=== PATIENT | female | born 1965 | race Caucasian/White ===

== ENCOUNTER → 2019-02-06 | Outpatient (CLI) | payer SELFPAY | PROVIDERS: Family Provider Registered Nurse; Visit Provider Licensed Practical Nurse | DX: M50.020 Cervical disc disorder with myelopathy, mid-cervical region, unspecified level (principal) | CPT/HCPCS: 72125 ==

== ENCOUNTER → 2019-02-26 14:18 | Outpatient (BNVA) | payer SELFPAY | PROVIDERS: Family Provider Registered Nurse; Referring Provider Licensed Practical Nurse; Visit Provider Psychiatry & Neurology Neurology | DX: M54.12 Radiculopathy, cervical region (principal); M79.601 Pain in right arm; M79.602 Pain in left arm | CPT/HCPCS: 95886; 95910 ==

== ENCOUNTER → 2019-09-19 14:21 | Outpatient (BNVA) | payer OTHER, SELFPAY | PROVIDERS: Family Provider Registered Nurse; PCP Registered Nurse; Visit Provider Nurse Practitioner Family | DX: Z11.59 Encounter for screening for other viral diseases (principal); J06.9 Acute upper respiratory infection, unspecified; R50.9 Fever, unspecified | CPT/HCPCS: 87635 ==

== ENCOUNTER → 2019-10-04 11:58 | Outpatient (BNVA) | payer MEDICAID, SELFPAY | PROVIDERS: Family Provider Registered Nurse; PCP Registered Nurse; Visit Provider Licensed Practical Nurse | DX: M50.020 Cervical disc disorder with myelopathy, mid-cervical region, unspecified level (principal); M43.12 Spondylolisthesis, cervical region | CPT/HCPCS: 99214 ==

== ENCOUNTER 2019-10-23 09:25 | Outpatient (CLI) | payer MEDICAID, SELFPAY ==
--- NOTE | 2019-10-23 08:45 | MR_ITS ---
WS: [id number] MRI CERVICAL SPINE NONCONTRAST TECHNIQUE: Sagittal T1, T2 and STIR imaging. Axial T2, gradient, and fiesta imaging. CLINICAL INFORMATION: M50.020 Cervical disc disorder with myelopathy, mid-cervi... COMPARISON: MRI FINDINGS: Straightening of the normal cervical lordosis. No high-grade central canal narrowing. Cord signal is normal. Alignment is unchanged. C2-C3: Normal. C3-C4: No significant disc bulging. Mild facet arthropathy. Mild left and no significant right forami nal narrowing. Edema in the right C3-C4 facets with a right facet effusion consistent with synovitis. Small amount of periarticular edema. This is similar to previous. C4-C5: Slight anterolisthesis. Disc osteophyte complex with endplate ridging. Moderate facet arthropa thy with mild bilateral foraminal narrowing. Persistent right C4-5 facet effusion with periarticular edema consistent with synovitis. C5-C6: Mild disc bulging. Mild to moderate facet arthropathy worse on the right. Moderate right and m ild left foraminal narrowing. C6-C7: Mild disc bulging with osteophytic ridging. Moderate to severe left and mild right bony forami nal narrowing. Mild central canal stenosis. C7-T1: Mild disc bulging with osteophytic ridging. Mild left and no significant right foraminal narro wing. Spinal canal is patent. Small disc protrusions in the upper thoracic spine. Overall no significant changes since . MR/MR cervical spin wo con* [id number] IMPRESSION: 1. Straightening of the normal cervical lordosis. Slight anterolisthesis C4 on C5 unchanged. 2. No high-grade central canal stenosis. Cord signal is normal. 3. Mild central canal stenosis C5-C6 and C6-C7. 4. Multilevel bony foraminal narrowing unchanged worse at right C4-C5 and left C6-C7. Moderate to severe at left C6-7. 5. Persistent edema within the right C3-C4 and C4-5 facets consistent with syn ovitis.
--- NOTE | 2019-10-23 09:30 | XR_ITS ---
WS: [id number] CERVICAL SPINE FLEXION EXTENSION TECHNIQUE: 3 views of the cervical spine: lateral neutral, flexion and extension views. CLINICAL INFORMATION: Neck pain COMPARISON: None. FINDINGS: Straightening of the normal cervical lordosis. 1.9 mm anterolisthesis C3 on C4 which increases slightly in flexion and decreases on extension 2 mm anterolisthesis C4 on C5 unchanged in flexion and decreases in extension 1.3 mm anterolisthesis C5 on C6 slightly increases in flexion and decreases on extension. Posterior elements are normal. No other significant findings. XR/XR cervical spine fl/ex [id number] IMPRESSION: 1. Mild flexion-extension instability at C3-C4 C4-C5 and C5-C6 described above .
== END 2019-10-23 09:26 | disposition home or self-care (01) ==
LOC: RADWPI 09:28
PROVIDERS: PCP Registered Nurse; Visit Provider Licensed Practical Nurse
DX: M50.020 Cervical disc disorder with myelopathy, mid-cervical region, unspecified level (principal); M43.12 Spondylolisthesis, cervical region; M54.2 Cervicalgia; G89.29 Other chronic pain; F17.210 Nicotine dependence, cigarettes, uncomplicated
CPT/HCPCS: 72040; 72141; 99214

== ENCOUNTER 2019-11-01 11:26 | Outpatient (RCR) | payer MEDICAID, SELFPAY | END 2019-11-07 23:59 | disposition home or self-care (01) | LOC: SPT 11:26 | PROVIDERS: PCP Registered Nurse; Referring Provider Licensed Practical Nurse; Visit Provider Licensed Practical Nurse | DX: M50.020 Cervical disc disorder with myelopathy, mid-cervical region, unspecified level (principal); M43.12 Spondylolisthesis, cervical region | CPT/HCPCS: 97110; 97161 ==

== ENCOUNTER 2019-11-08 06:00 | Outpatient (RCR) | payer MEDICAID, SELFPAY | END 2019-12-08 23:59 | disposition home or self-care (01) | LOC: SPT 06:00 | PROVIDERS: PCP Registered Nurse; Referring Provider Licensed Practical Nurse; Visit Provider Licensed Practical Nurse | DX: M50.020 Cervical disc disorder with myelopathy, mid-cervical region, unspecified level (principal); M43.12 Spondylolisthesis, cervical region | CPT/HCPCS: 97110 ==

== ENCOUNTER 2019-11-09 10:13 | Outpatient (CLI) | payer MEDICAID, SELFPAY ==
--- NOTE | 2019-11-09 10:45 | CT_ITS ---
WS: [id number] CT cervical spine. Additional two-dimensional coronal and sagittal reconstruction was performed. 11/08 Clinical Data: Neck pain Comparison: Cervical spine, 10/23/2019, MRI cervical spine, 10/23/2019, CT cervical spine, 02/06/2019. DLP: 1634.[address] scans at [facility] use at least one of these dose optimization techniques: automat ed exposure control; mA and/or kV adjustment per patient size (includes targeted exams where dose is matched to clinical indication); or iterative reconstruction. Findings: No compression fractures are seen. There is degenerative disc disease at C5-C6, C6-C7 and C7-T1. Ther e is anterolisthesis of C3 on C4 of 0.2 cm and also 0.2 cm at C4 on C5. Facet joint arthritis at C3-C 4, C4-C5 and C5-C6 on the right is seen. The spinous processes are in good alignment. The odontoid is unremarkable. There is no prevertebral soft tissue swelling. The soft tissues of the cervical spine and the lung apices are not remarkable. C2-C3: No disc bulge, canal stenosis or foraminal stenosis is seen. C3-C4: There is a 0.8 cm cyst of the right C3 facet. No canal stenosis or foraminal stenosis is seen. C4-C5: There is narrowing of the right foramen. No central canal stenosis is seen. The left foramen i s normal. C5-C6: There is mild narrowing of the right foramen but no canal stenosis. C6-C7: There is mild narrowing of the left foramen but no canal stenosis. C7-T1: No disc bulge, canal stenosis or foraminal stenosis is seen. CT/CT cervical spin wo con* [id number] Impression: 1. Minimal anterolisthesis of C3 on C4 and C4 on C5. 2. Minimal multilevel anterolateral foraminal narrowing. 3. Right facet joint arthritis with a cyst of the right C3 facet.
== END 2019-11-09 10:14 | disposition home or self-care (01) ==
LOC: RADWPI 10:17
PROVIDERS: Family Provider Registered Nurse; PCP Registered Nurse; Visit Provider Licensed Practical Nurse
DX: M47.812 Spondylosis without myelopathy or radiculopathy, cervical region (principal)
CPT/HCPCS: 72125

== ENCOUNTER → 2019-11-13 12:59 | Outpatient (BNVA) | payer MEDICAID, SELFPAY | PROVIDERS: Family Provider Registered Nurse; PCP Registered Nurse; Visit Provider Licensed Practical Nurse | DX: M50.020 Cervical disc disorder with myelopathy, mid-cervical region, unspecified level (principal); M43.12 Spondylolisthesis, cervical region; F17.210 Nicotine dependence, cigarettes, uncomplicated | CPT/HCPCS: 99213 ==

== ENCOUNTER → 2019-12-24 13:53 | Outpatient (BNVA) | payer MEDICAID, SELFPAY | PROVIDERS: PCP Registered Nurse; Visit Provider Registered Nurse | DX: Z11.59 Encounter for screening for other viral diseases (principal) | CPT/HCPCS: 87635 ==

== ENCOUNTER 2019-12-31 05:50 | Day surgery (SDC) | payer MEDICAID, SELFPAY ==
[2019-12-26 11:54] VITALS: BMI 39.8
--- NOTE | 2019-12-26 12:07 | ANES.PREANE2 ---
Pre-Anesthetic Assessment Pre-Anesthetic Assessment: Height/Weight: Height 1.6 m Weight 102.058 kg Preop Diagnosis: Cervical stenosis with myelopathy Proposed Procedure: Operation Date: 12/31/19 07:00 Proposed Procedures p Anterior Cervical Discectomy & Fusion C3-C4 C4-C5 C5-C6 82506 M47.12 M47.22 09288 [id number](Not Applicable) - Kishore Xavier, Familial anesthetic complications: None Social: Social History: Tobacco and No alcohol Exam: Pre-Anes Outpt Exam: alert, oriented x 3, clear to auscultation bilaterally and regular rate & rhythm Airway: Cervical ROM: WNL MP: 4 Dentition: False CV/HEM: CV/HEM: HTN Metabolic: Metabolic: Morbid obesity Musc/skel: Musc/skel: Lower Back Pain Neuropsych: Neuropsych: Neuropathy (pinched nerves (R arm)) and None reported Anesthetic Plan: ASA status: 2 Anesthesia: General Risk of > 500 ml blood loss (7ml/kg in children): No PFSH Anesthesia PFSH: Medical History (Updated 12/24/19 @ 13:43 by DARRIUS Kramer) Cervical disc disorder with myelopathy of mid-cervical region Chronic neck pain Essential hypertension Spondylolisthesis of cervical region Surgical History History of cholecystectomy Hx of tonsillectomy S/P lumbar laminectomy 08/17/2018 Dr. Jerry Davis: Right L4-L5 laminotomy/discectomy/foraminotomy, reexploration. 09/29/2017 Dr. Jerry Davis Right L4-L5 hemilaminotomy/discectomy/foraminotomy Family History Brother Cancer Mother Lung disease Social History Smoking and tobacco status: current some day smoker Alcohol intake: never Household members: other Details: room mate Marital status: Current occupational status: disabled History of recent travel: No Data Anesthesia Cardiac Studies: No Data to Display
[2019-12-31] VITALS (10 sets, daily range): BP systolic 112–161; BP diastolic 78–92; PULSE 84–97; RESP 14–23; TEMP 36.2–36.4; O2SAT 95–100
--- NOTE | 2019-12-31 | SCC_ITS ---
Procedure Done: 1. Anterior diskectomy C3/4 2. Anterior diskectomy C4/5 3. Anterior diskectomy C5/6 4. Insertion of cage at C3/4 5. Insertion of Cage C4/5 6. Insertion of cage C5/6 7. anterior plate C3-6 8. allograft 27.4 seconds of fluoroscopic guidance, for a cumulative dose of 3.59 mGy, was provided to Dr. Xavier by the radiology department. C-arm images of the cervical spine were saved for the patient's permanent record. EDUARDO
--- NOTE | 2019-12-31 | XR_ITS ---
WS: [id number] XR cervical spine 3V* [id number] REASON FOR EXAM: spondylosis with meylopatyh FINDINGS: Anterior plate and screw fixation of the cervical spine, C3-C6, with interbody fusion devices from th e anterior plate into the disc space at C3-C4, C4-C5, and C5-C6. Cervical spine and surgical applianc e appear in proper position and alignment. , XR/XR cervical spine 3V* [id number] IMPRESSION: Anterior discectomy and fusion as above.
[2019-12-31] MEDS: gabapentin 300 mg Capsule PO (06:18)
[2019-12-31] MEDS: sodium chloride 0.9% 1,000 ML 30 ML IV (06:31)
--- NOTE | 2019-12-31 06:33 | P.ANESUD_ITS ---
Pre-Anesthetic Update Pre-Anesthetic Assessment: Date of Surgery/Procedure: 12/31/19 Preop Hayde gnosis: Cervical stenosis with myelopathy Proposed Procedure: Operation Date: 12/31/19 07:00 Proposed Procedures p Anterior Cervical Discectomy & Fusion C3-C4 C4-C5 C5-C6 08020 M47.12 M47.22 06309 [id number](Not Applicable) - Kishore Xavier, DO Any changes to Pre-Anesthetic Assessment?: No Last Intake: Intake Last Liquid Date 12/30/19 Last Liquid Time 23:55 Last Solid Date 12/30/19 Last Solid Time 22:30 Vitals: Temperature 97.6 F 12/31/19 06:01 Temperature Source Temporal Artery S can 12/31/19 06:01 Pulse Rate 84 12/31/19 06:01 Respiratory Rate 16 12/31/19 06:01 Blood Pressure 122/84 12/31/19 06:01 Blood Pressure Janae n 96 12/31/19 06:01 Pulse Oximetry 99 12/31/19 06:01 Oxygen Delivery Me thod 12/31/19 06:01 Exam: Pre-Anes Outpt Exam: alert, oriented x 3, clear to auscultation bilaterally and regular rate & rhythm Cardiac Studies: No Data to Display
[2019-12-31 06:43] LABS: OR HCG Qualitative Urine Negative (Negative)
--- NOTE | 2019-12-31 06:43 | W.PM.OPSUD ---
Surgery/Procedure H&P Update DATE OF PROCEDURE: December 31, 2019 DATE H&P PERFORMED: 12/04/19 H&P UPDATE INFORMATION: I have reviewed H&P completed within last 30 days, I have examined patient prior to procedure and No changes to prior documentation PREOP DIAGNOSIS: Cervical stenosis with myelopathy PLANNED PROCEDURE: Operation Date: 12/31/19 07:00 Proposed Procedures p Anterior Cervical Discectomy & Fusion C3-C4 C4-C5 C5-C6 83016 M47.12 M47.22 74027 [id number](Not Applicable) - Kishore Xavier DO
[2019-12-31] MEDS: thrombin 5,000 unit SDV 5000 UNIT XX (12:10)
--- NOTE | 2019-12-31 14:30 | PM.OP ---
Operative Report Date of procedure: December 31, 2019 Pre-op Diagnosis: Cervical stenosis with myelopathy Post-op diagnosis: same Procedure Done: 1. Anterior diskectomy C3/4 2. Anterior diskectomy C4/5 3. Anterior diskectomy C5/6 4. Insertion of cage at C3/4 5. Insertion of Cage C4/5 6. Insertion of cage C5/6 7. anterior plate C3-6 8. allograft Surgeon: Kishore Xavier Anesthesia: General Estimated blood loss (mL): 50 Condition: stable Disposition: PACU Procedure: 1. Anterior diskectomy C3/4 2. Anterior diskectomy C4/5 3. Anterior diskectomy C5/6 4. Insertion of cage at C3/4 5. Insertion of Cage C4/5 6. Insertion of cage C5/6 7. anterior plate C3-6 8. allograft Patient was brought to the operative suite after undergoing anesthesia and having neuro monitoring hooked up patient was brought to the OR suite placed in the supine position where has hycl-ecdy-lix padded patient was prepped and draped per sterile fashion. Skin incision made over the C4 level. Platysmas was split blunt dissection was made down through to the deep cervical fascia down to the anterior longitudinal ligament spinal needle was then placed into the C3-4 disc space this confirmed under C-arm guidance the spinally was then removed and caters used to expose the anterolateral to the ligament down from C3 inferior endplate to the C6 superior endplate. The above is then used to make a cuff of tissue under the longus coli and retractors were placed Aulander pins were placed in C3 and C4 distracted drill was then used to drill down the anterior osteophyte discectomies performed using curettes and Kerrisons posterior longitudinal he was taken down size 6 cage was placed into the C3-4 disc space. Was brought to the C4-5 level again retractors were placed the discectomy was performed using curettes Kerrisons the size 5 cage was inserted these cages are all packed with allograft osteoamp fibers this was done at C3-4 and then repeated again at C4-5 next process was repeated at C5-6 the discectomies were performed using Kerrisons curettes drill and once this displaced was opened then again a C6 C5-6 disc space was opened with a curettes and Kerrisons the large curette was used to pass through the foramens this was done at each level to ensure that the nerve roots were decompressed and again posterior longitudinal ligament was taken down at all levels nerves were identified and felt to be completely freed up osteophytes were taken down posteriorly and all these levels along with the uncinate process and then cages were placed cages were packed with osteoamp fibers and the cages were placed at C3-4 C4-5 C5-6 Next a anterior plate from [employer] was placed 2 screws were placed at each level at C3 C4-C5C6 AP lateral fluoroscopy ensured that the plate was in prone position cages were preposition wounds were irrigated esophagus was felt to be intact neuro monitoring was back to baseline from the beginning the case. Wounds were closed with 2-0 Vicryl with the platysmas and then skin was closed with 2-0 Vicryl Monocryl and then glue sterile dressing was applied patient was placed in a soft collar and transferred to the PACU in stable condition
[2019-12-31] MEDS: morphine 4 mg/mL SDV 1 mL 2 MG IVP (15:00)
--- NOTE | 2019-12-31 15:17 | PM.PACU ---
PACU note Post-Anesthesia Exam: awake and vital signs stable Disposition: admitted
[2019-12-31] MEDS: HYDROcodone-acetaminophen 5-325 mg Tablet 1 TAB PO (16:16)
== END 2019-12-31 16:30 | disposition home or self-care (01) ==
PROVIDERS: Anesthesiology; PCP Registered Nurse; Visit Provider Orthopaedic Surgery
PROC: 0RB30ZZ Excision of Cervical Vertebral Disc, Open Approach (ICD-10-PCS; CPT 22551; principal; 2019-12-31 07:00)
DX: M48.02 Spinal stenosis, cervical region (principal); M47.12 Other spondylosis with myelopathy, cervical region; I10 Essential (primary) hypertension; E66.01 Morbid (severe) obesity due to excess calories; Z68.39 Body mass index [BMI] 39.0-39.9, adult; F17.210 Nicotine dependence, cigarettes, uncomplicated
CPT/HCPCS: 20931; 22551; 22552 ×2; 12345; 72040; 76000; 81025; 84703; C1713; C9359; J0131; J0330; J0690; J1100; J2250; J2270; J2370; J2405; J2704; J2765; J3010; J3490; J7030

== ENCOUNTER → 2020-02-12 09:39 | Outpatient (BNVA) | payer MEDICAID, SELFPAY | PROVIDERS: PCP Registered Nurse; Visit Provider Orthopaedic Surgery | DX: M47.12 Other spondylosis with myelopathy, cervical region (principal); M47.22 Other spondylosis with radiculopathy, cervical region; Z98.890 Other specified postprocedural states | CPT/HCPCS: 72040 ==

== ENCOUNTER → 2020-03-18 11:13 | Outpatient (BNVA) | payer MEDICAID, SELFPAY | PROVIDERS: PCP Registered Nurse; Visit Provider Orthopaedic Surgery | DX: M54.2 Cervicalgia (principal); G89.29 Other chronic pain; W19.XXXA Unspecified fall, initial encounter; Z98.1 Arthrodesis status | CPT/HCPCS: 72050 ==

== ENCOUNTER 2020-04-14 16:43 | Outpatient (CLI) | payer MEDICAID, SELFPAY ==
--- NOTE | 2020-04-14 16:45 | MR_ITS ---
WS: [id number] MRI RIGHT SHOULDER NONCONTRAST TECHNIQUE: Sagittal T2, coronal T1, T2 and proton density imaging. Axial gradient PDE imaging. CLINICAL INFORMATION: M25.511 - Pain in right shoulder COMPARISON: None. FINDINGS: Advanced degenerative arthritis AC joint with mild edema. Moderate downsloping acromion. Narrowing of the subacromial space. Full-thickness tear involving the distal supraspinatus with tendon retraction measuring 10 mm. Tendinopathy in the distal supraspinatus. Chronic thinning of the supraspinatus. Sm all amount of subacromial/subdeltoid fluid. Normal infraspinatus. Normal teres minor. Small intrasubstance tear involving the distal subscapulari s. Biceps tendon within the bicipital groove. Physiologic fluid along the biceps tendon sheath. Екатерина l biceps labral anchor. Normal glenoid labrum. MR/MR shoulder RT wo con* [id number] IMPRESSION: 1. Advanced degenerative arthritis AC joint with edema and moderate downslopin g acromion. 2. Small full-thickness rotator cuff tear of the distal supraspinatus with justin roximately 10 mm retraction of the proximal tendon. Chronic tendinopathy. 3. Normal infraspinatus and teres minor. 4. Small intrasubstance tear involving the distal subscapularis. 5. Normal biceps tendon within the bicipital groove.
== END 2020-04-14 16:44 | disposition home or self-care (01) ==
LOC: RADSHAW 16:44
PROVIDERS: PCP Registered Nurse; Visit Provider Nurse Practitioner Family
DX: S46.811A Strain of other muscles, fascia and tendons at shoulder and upper arm level, right arm, initial encounter (principal); M75.101 Unspecified rotator cuff tear or rupture of right shoulder, not specified as traumatic; X58.XXXA Exposure to other specified factors, initial encounter; M19.011 Primary osteoarthritis, right shoulder
CPT/HCPCS: 73221

== ENCOUNTER → 2020-05-16 09:54 | Outpatient (BNVA) | payer MEDICAID, SELFPAY | PROVIDERS: PCP Registered Nurse; Visit Provider Orthopaedic Surgery | DX: Z20.822 Contact with and (suspected) exposure to COVID-19 (principal) | CPT/HCPCS: 87635 ==

== ENCOUNTER 2020-05-22 07:56 | Day surgery (SDC) | payer MEDICAID, SELFPAY ==
[2020-05-21 13:27] VITALS: BMI 34.3
[2020-05-22] VITALS (13 sets, daily range): BP systolic 88–150; BP diastolic 55–82; PULSE 72–91; RESP 16–20; TEMP 36.2–36.7; O2SAT 96–100
[2020-05-22] MEDS: acetaminophen 500 mg Tablet 1000 MG PO (08:50)
[2020-05-22 08:52] LABS: OR HCG Qualitative Urine Negative (Negative)
[2020-05-22] MEDS: sodium chloride 0.9% 1,000 ML 30 ML IV (09:00)
--- NOTE | 2020-05-22 09:39 | ANES.PREANE2 ---
Pre-Anesthetic Assessment Pre-Anesthetic Assessment: Height/Weight: Height 1.63 m Weight 90.718 kg Temp Pulse Resp BP Pulse Ox 97.3 F L 91 18 150/78 100 05/22/20 08:15 05/22/20 08:15 05/22/20 08:15 05/22/20 08:15 05/22/20 08:15 Preop Diagnosis: Rotator cuff tear Right shoulder Proposed Procedure: Operation Date: 05/22/20 10:00 Proposed Procedures p Shoulder Arthroscope 48035 M75.101(Right) - Gagan Piedra MD s Rotator Cuff Repair(Right) - Gagan Piedra MD Was Beta Tanja taken within 24 hours: N/A Was Clonidine taken within 24 hours: N/A Last intake: Intake Last Liquid Date 05/22/20 Last Liquid Time 06:00 Last Solid Date 05/21/20 Last Solid Time 21:00 Social: Social History: Tobacco and No alcohol Exam: Pre-Anes Outpt Exam: alert, oriented x 3, clear to auscultation bilaterally and regular rate & rhythm Airway: Submandibular: WNL Cervical ROM: WNL MP: 2 Pulmonary: Pulmonary: None reported CV/HEM: CV/HEM: HTN : : None reported Hepatic: Hepatic: None reported GI: GI: None reported Metabolic: Metabolic: None reported Musc/skel: Musc/skel: Lower Back Pain Neuropsych: Neuropsych: Depression Anesthetic Plan: ASA status: 2 Anesthesia: General Other: Risks, benefits and options for post op pain control were disc; pt understands and consents to Right Interscalene Nv Blk. PFS Anesthesia PFSH: Medical History Cervical disc disorder with myelopathy of mid-cervical region Chronic neck pain Essential hypertension Spondylolisthesis of cervical region Surgical History History of cholecystectomy Hx of tonsillectomy S/P lumbar laminectomy 08/17/2018 Dr. Jerry Davis: Right L4-L5 laminotomy/discectomy/foraminotomy, reexploration. 09/29/2017 Dr. Jerry Davis Right L4-L5 hemilaminotomy/discectomy/foraminotomy Family History Brother Cancer Mother Lung disease Social History Smoking and tobacco status: current some day smoker Alcohol intake: never Household members: other Details: room mate Marital status: Current occupational status: disabled History of recent travel: No Data Anesthesia Other Labs: Laboratory Results - last 48 hr 05/22/20 08:50 Urine HCG, Qual Negative Cardiac Studies: No Data to Display
--- NOTE | 2020-05-22 09:40 | W.PM.OPSUD ---
Surgery/Procedure H&P Update DATE OF PROCEDURE: May 22, 2020 DATE H&P PERFORMED: 12/04/19 PREOP DIAGNOSIS: Rotator cuff tear Right shoulder PLANNED PROCEDURE: Operation Date: 05/22/20 10:00 Proposed Procedures p Shoulder Arthroscope 38534 M75.101(Right) - Gagan Piedra MD s Rotator Cuff Repair(Right) - Gagan Piedra MD
[2020-05-22] MEDS: midazolam 1 mg/mL INJ 2 mL 2 MG IVP (09:45)
[2020-05-22] MEDS: fentaNYL 50 mcg/mL INJ 2mL 100 MCG IVP (09:46)
--- NOTE | 2020-05-22 09:59 | ANES.PROC ---
Anesthesia Procedures Procedure/Date: 05/22/20 Nerve Block ^: Nerve Block 1: Main Anesthesia: general anesthesia Time Out Performed: Yes Consent: requested by attending/covering physician, risks and benefits reviewed and patient agrees to proceed Nerve block location: interscalene Anesthesia monitors applied: pulse oximetry, BP cuff and oxygen Nerve block position: supine Anesthetic Used: ropivicaine 0.5% Amount of anesthesia used (mL): 30 Nerve Stimulator Used?: Yes Interscalene/Femoral BLK: 2 stimuplex 22 g needle used for position and inplane approach Injection: neg aspiration of heme Patient Tolerated Procedure: well and no complications Complications: none Additional Comments: Easy single pass with distinct motor response at 1.2mA involving the shoulder and entire arm; response disappeared at 0.48mA. 30ml of ropiv injected. No paresthesia at any time during procedure.
[2020-05-22] MEDS: EPINEPHrine 1 mg/mL INJ 2 MG (11:17)
--- NOTE | 2020-05-22 12:12 | PM.OP ---
Operative Report Date of procedure: May 22, 2020 Pre-op Diagnosis: Rotator cuff tear Right shoulder Post-op Diagnosis: Tear right rotator cuff, impingement, partial tear right biceps tendon Post-op Findings: As above Procedure Done: Endoscopic right rotator cuff repair, arthroscopic right subacromial decompression, arthroscopic right biceps tenotomy Implants: Childers and Nephew Helicoil 4.5 mm anchors x2, Childers and Nephew Helicoil knotless 5.5 mm anchors x2 Pathology: none sent Surgeon: Gagan Piedra Anesthesia: General and Nerve Block (Interscalene block) Estimated blood loss (mL): 20 Complications: None Findings: The patient had a large tear of her rotator cuff beginning just anterior to the bicipital groove and extending posteriorly approximately 2 cm with approximately a centimeter tendinous retraction. She had good quality and a mobile rotator cuff. She had prominent spurring of her anterior acromion. She had a 50% partial thickness tear of her biceps tendon. Condition: stable Disposition: PACU Procedure: The patient was given an interscalene block in holding. She was taken to the operating room and given 2 g of Ancef. She was positioned in the lateral position. She was prepped and draped in the usual fashion. A timeout was performed. A posterior portal was made 2 cm inferior and medial to the posterior corded acromion. A scope cannula and trocar were driven into the glenohumeral joint. A anterior working portal portal was localized with a spinal needle to allow introduction of an arthroscopy probe. The tear of the rotator cuff was identified. The humeral head and glenoid were free of chondromalacia. She was found to have a partial-thickness tear of her biceps. Incisor shaver was introduced and degenerative torn tendon removed revealing approximately a 50% tear. As the patient had a larger arm and lower demands a biceps tenotomy was performed. The Childers and Nephew Werewolf probe was introduced and the biceps released from its insertion on the superior labrum. Scope was then introduced through the posterior portal into the subacromial space. A lateral portal was opened up with a scalpel blade and a cannula was placed through the lateral and anterior portal. The large tear of the rotator cuff was again identified. Prominent anterior spurring of the acromion was identified and an acromioplasty was performed to make more room for the repair. Through the lateral portal the werewolf probe was introduced and the leading edge of acromion was outlined. A 5.5 mm acromionizer was used to remove approximately 5 mm of anterior and inferior acromial spurring. Attention was then focused on the rotator cuff. The edges were debrided back with the Childers and Nephew Werewolf probe. A grasper was used to identify the characteristic of the tear. It appeared to be a large crescentic type tear and could easily be mobilized back to the greater tuberosity. The acromionizer shaver is used to debride the tuberosity of back to vascular bone. Through a lateral stab wound a 4.5 mm Childers and Nephew Helicoil anchor was placed with a single tape suture. One limb of the suture was passed through the posterior rotator cuff approximately 8 mm from the tendinous edge with the Childers and NephPramana FirstPass suture passer. The free tape was passed approximately 5 mm anteriorly. A second anchor was placed in the anterior medial footprint and the 2 ends of the tape sutures passed in identical fashion. They were secured drawing the medial rotator cuff to the medial debrided bone. Next one limb from each anchor was brought through the lateral cannula. They were passed through a Childers and Nephew Helicoil knotless 5.5 mm anchor and secured to the lateral footprint drawing the lateral rotator cuff down to bone. This was repeated with the free suture ends through an anterior and lateral anchor. Those sutures were then cut. The repair was then probed with a small unstable flap posteriorly. The Childers and NephPramana FirstPass suture passer was used to shuttle 1 limb of the knotless anchor through the posterior lateral cuff and this was secured with sliding half hitches reinforcing that posterior leaf of tendon. Portals were closed with 3-0 Prolene. Sterile dressings were applied. The patient was placed in a sling, extubated, and taken to recovery room in stable condition.
--- NOTE | 2020-05-22 12:34 | SUR.PHASEI ---
1234- ORAL AIRWAY REMOVED, SIMPLE MASK AT 6LPM SAT 100%
--- NOTE | 2020-05-22 13:38 | ANE.PACU2 ---
Inpatient post-anesthesia follow up: Airway intact: Yes Vital signs: Temperature 97.8 F Pulse Rate 72 Respiratory Rate 18 Blood Pressure 102/66 Pulse Oximetry 97 Oxygen Delivery Me thod Room Air Oxygen Flow Rate 6 Fraction of Inspir ed Oxygen Hydration adequate: Yes Nausea and vomiting: No Pain level: 1 Mental status: Baseline
== END 2020-05-22 14:07 | disposition home or self-care (01) ==
PROVIDERS: Anesthesiology; PCP Registered Nurse; Visit Provider Orthopaedic Surgery
PROC: (CPT 29805; principal; 2020-05-22 09:50)
PROC: (CPT 29826; 2020-05-22 09:50)
DX: M75.101 Unspecified rotator cuff tear or rupture of right shoulder, not specified as traumatic (principal); I10 Essential (primary) hypertension; F32.9 Major depressive disorder, single episode, unspecified; F17.210 Nicotine dependence, cigarettes, uncomplicated
CPT/HCPCS: 29826; 29827; 64415; 81025; 84703; 96374; 96375; C1713; J0171; J0690; J1100; J2250; J2405; J2704; J2795; J3010; J3490; J7030

== ENCOUNTER → 2021-03-25 09:39 | Outpatient (BNVA) | payer MEDICAID, SELFPAY | PROVIDERS: PCP Registered Nurse; Visit Provider Registered Nurse | DX: M25.569 Pain in unspecified knee (principal); M25.469 Effusion, unspecified knee | CPT/HCPCS: 85025 ==

== ENCOUNTER 2021-03-27 15:15 | Emergency (ER) | payer MEDICAID, SELFPAY ==
[2021-03-27 15:17] VITALS: BP 181/106; PULSE 104; RESP 20; TEMP 36.5; O2SAT 94; BMI 39.6
--- NOTE | 2021-03-27 15:21 | XR_ITS ---
WS: [id number] Right knee, 3 views, 03/27/2021 Clinical Data: knee pain Comparison: None. Findings: No fractures or dislocations are seen. The joint spaces are normal. The patella is intact. The soft t issues are unremarkable. XR/XR knee RT 3V* [id number] Impression: Negative right knee. Kellgren-Hima Classification:
--- NOTE | 2021-03-27 16:07 | XRR_ITS ---
PROCEDURE INFORMATION: Exam: XR Right Femur Exam date and time: 03/27/2021 4:07 PM Age: 56 years old Clinical indication: Thigh; Right; Patient HX: History--rt upper leg/knee pain for 3 weeks, no known trauma; Additional info: Femur pain TECHNIQUE: Imaging protocol: XR Right femur. Views: 2 views. COMPARISON: CR XR knee RT 3V* [id number] 03/27/2021 3:31 PM FINDINGS: Bones/joints: The right hip is image separately. Small osteophyte at the inferior aspect of the patella. No acute fracture. No dislocation. Normal bone mineralization. No joint effusion. Joint spaces are maintained. Soft tissues: No soft tissue swelling. No radiopaque foreign body. XR/XR femur RT min 2V* [id number] IMPRESSION: 1. No acute fracture of the the right femur. Followup imaging recommended in 7-14 days if clinical concern for fracture persists. 2. Small osteophyte at the inferior aspect of the patella.
--- NOTE | 2021-03-27 16:07 | XRR_ITS ---
PROCEDURE INFORMATION: Exam: XR Right Hip Exam date and time: 03/27/2021 4:07 PM Age: 56 years old Clinical indication: Hip pain; Right hip; Patient HX: History--rt upper leg/knee pain for 3 weeks, no known trauma TECHNIQUE: Imaging protocol: XR Right hip. Views: 1 view hip with pelvis when performed. COMPARISON: No relevant prior studies available. FINDINGS: Bones/joints: There is partial fusion of the right sacroiliac joint, consistent with a remote episode of seronegative sacroiliitis versus sequela of degenerative change. Small osteophytes at the the right acetabulum. No acute fracture. No dislocation. Normal bone mineralization. No joint effusion. Joint spaces are maintained. Soft tissues: No soft tissue swelling. No radiopaque foreign body. XR/XR hip RT 2-3V wo/w pel* [id number] IMPRESSION: 1. No acute fracture. MRI would be recommended if clinical concern for fracture persists. 2. Small osteophytes at the the right acetabulum. 3. Incidental/nonacute findings are listed in the report.
[2021-03-27] MEDS: acetaminophen 500 mg Tablet PO (16:44)
--- NOTE | 2021-03-27 16:52 | ED_ITS ---
HPI - General Adult General: Chief complaint: Extremity Injury, Lower Stated complaint: R KNEE PAIN AND SWELLING Time Seen by Provider: 03/27/21 15:21 History of Present Illness: Patient is a 56-year-old female with history of morbid obesity, 3 weeks of right knee swelling and right hip pain presenting to the emergency room for evaluation of worsening hand pain x3 days. Patient tells me that she underwent recent knee arthrocentesis 2 days ago. Since then, her knee swelling has significantly improved. However 3 days ago when she woke up in the morning she has noticed right hip pain going down the lateral thigh. Patient has no pain with range of motion. Denies any fever or chills, recent fall, trauma or injury. Has no other focal complaints. Patient is not on any anticoagulation. Patient tells me that her right knee has been healing well. No other focal source of pain. Onset: 3 days ago acutely Duration: ongoing Location:home Severity: moderate Associated symptoms: Deny chest pain, dyspnea, nausea, rash, palpitations or vomiting Review of Systems Const: Denies: fever(s) or chills Eyes: Denies: change in vision ENMT: Denies: mouth pain Card: Denies: chest pain or palpitations Resp: Denies: dyspnea or non-productive cough GI: Denies: abdominal pain, nausea, vomiting or diarrhea : Denies: dysuria Musc: Reports: extremity pain (+R lateral thigh pain, R hip pain) Skin/Breast: Denies: rash or new lesions Neuro: Denies: weakness in extremities Psych: Reports: other (Normal mood) Christos/Lymph: Denies: easy bruising PFSH ED PFSH: Medical History Cervical disc disorder with myelopathy of mid-cervical region Chronic neck pain Essential hypertension Spondylolisthesis of cervical region Surgical History History of cholecystectomy Hx of tonsillectomy S/P lumbar laminectomy 08/17/2018 Dr. Jerry Davis: Right L4-L5 laminotomy/discectomy/foraminotomy, reexploration. 09/29/2017 Dr. Jerry Davis Right L4-L5 hemilaminotomy/discectomy/foraminotomy Family History Brother Cancer Mother Lung disease Social History Smoking and tobacco status: current every day smoker Alcohol intake: never Household members: other Details: room mate Marital status: Current occupational status: disabled History of recent travel: No Physical Exam Const: COMMON NORMALS: alert HENMT: COMMON NORMALS: atraumatic HEAD & SCALP: atraumatic MOUTH: moist mucous membranes not abnormal Eye: COMMON NORMALS: EOMs intact bilaterally and conjunctivae normal CONJUNCTIVA: Yes conjunctivae normal Neck/C-Spine: COMMON NORMALS: full ROM and supple Resp: COMMON NORMALS: normal respiratory effort and clear to auscultation bilaterally AUSCULTATION: clear to auscultation bilaterally Cardio: COMMON NORMALS: regular rate RATE: regular rate GI: COMMON NORMALS: Soft to palpation and non-tender PALPATION: Yes Soft to palpation Extremity: COMMON NORMALS: full ROM Neuro: SENSORIUM/ORIENTATION: Yes alert MOTOR EXAM: No Abnormal motor strength present and Other motor observations present (no focal motor deficits) Psych: COMMON NORMALS: speech normal SPEECH: Yes normal speech MOOD & AFFECT: Yes euthymic mood Course Vital Signs: Vital signs: Vital Signs Temperature 97.7 F 03/27/21 15:17 Pulse Rate 104 H 03/27/21 15:17 Respiratory Rate 20 H 03/27/21 15:17 Blood Pressure 181/106 03/27/21 15:17 Pulse Oximetry 94 03/27/21 15:17 MDM - General Adult Medical Decision Making 86-year-old female with history of chronic right knee and right hip pain for the last month status post arthrocentesis 2 days ago presenting to the emergency jeane with acute on chronic right hip and lateral leg pain. On exam, patient has intact range of motion of right hip and right knee. There are no signs of acute septic joint. X-rays negative for any acute signs of fracture. No suspicion for DVT. Notes overlying erythema/fluctuance/induration to suggest an acute soft tissue infection. Patient will given close follow-up with orthopedics. I have given patient follow up with our skilled nursing case manager to be seen by our outpatient Orthopedics for hip and thigh pain. Patient aware of a call from our skilled nursing case manager to schedule for appointment(s) and verbalizes understanding of the importance of following up. Rx: norflex, tylenol, lidocaine patch, and menthol PRN pain Disposition: Discharge. Patient counseled regarding diagnostic impression, treatment plan. Patient given ED strict return precautions to return for continuation, worsening, or development of new symptoms. Instructed to f/u w/ PCP and Orthopedics regarding symptoms today. Patient verbalized understanding. Lab Data Radiology Impressions Knee X-Ray 03/27/21 15:21 Impression: Negative right knee. Kellgren-Hima Classification: Femur X-Ray 03/27/21 16:07 IMPRESSION: 1. No acute fracture of the the right femur. Followup imaging recommended in 7-14 days if clinical concern for fracture persists. 2. Small osteophyte at the inferior aspect of the patella. Hip/Pelvis X-Ray 03/27/21 16:07 IMPRESSION: 1. No acute fracture. MRI would be recommended if clinical concern for fracture persists. 2. Small osteophytes at the the right acetabulum. 3. Incidental/nonacute findings are listed in the report. Imaging Data Other Imaging: Radiologist's impression: [facility] [address] XRay Report Signed Patient: Benjamín Pritchard Unit #: [id number] : 1965 Age/Sex: 56 / F ADM Date: 03/27/21 Loc: ER Room/Bed: Attending Dr: Ordering Provider/Ordering MD: Eve Taylor MD Date of Service: 03/27/21 Procedure(s): XR hip RT 2-3V wo/w pel* [id number] Accession Number(s): [id number] Report Number: [id number] PROCEDURE INFORMATION: Exam: XR Right Hip Exam date and time: 03/27/2021 4:07 PM Age: 56 years old Clinical indication: Hip pain; Right hip; Patient HX: History--rt upper leg/knee pain for 3 weeks, no known trauma TECHNIQUE: Imaging protocol: XR Right hip. Views: 1 view hip with pelvis when performed. COMPARISON: No relevant prior studies available. FINDINGS: Bones/joints: There is partial fusion of the right sacroiliac joint, consistent with a remote episode of seronegative sacroiliitis versus sequela of degenerative change. Small osteophytes at the the right acetabulum. No acute fracture. No dislocation. Normal bone mineralization. No joint effusion. Joint spaces are maintained. Soft tissues: No soft tissue swelling. No radiopaque foreign body. XR/XR hip RT 2-3V wo/w pel* [id number] IMPRESSION: 1. No acute fracture. MRI would be recommended if clinical concern for fracture persists. 2. Small osteophytes at the the right acetabulum. 3. Incidental/nonacute findings are listed in the report. ? Dictated By: Amanda Cronin MD Signed By: Amanda Cronin MD Signed Date/Time: 03/27/21 1747 DD/ [address] [address] XRay Report Signed Patient: Benjamín Pritchard Unit #: [id number] : 1965 Age/Sex: 56 / F ADM Date: 03/27/21 Loc: ER Room/Bed: Attending Dr: Ordering Provider/Ordering MD: Eve Taylor MD Date of Service: 03/27/21 Procedure(s): XR femur RT min 2V* [id number] Accession Number(s): [id number] Report Number: [id number] PROCEDURE INFORMATION: Exam: XR Right Femur Exam date and time: 03/27/2021 4:07 PM Age: 56 years old Clinical indication: Thigh; Right; Patient HX: History--rt upper leg/knee pain for 3 weeks, no known trauma; Additional info: Femur pain TECHNIQUE: Imaging protocol: XR Right femur. Views: 2 views. COMPARISON: CR XR knee RT 3V* [id number] 03/27/2021 3:31 PM FINDINGS: Bones/joints: The right hip is image separately. Small osteophyte at the inferior aspect of the patella. No acute fracture. No dislocation. Normal bone mineralization. No joint effusion. Joint spaces are maintained. Soft tissues: No soft tissue swelling. No radiopaque foreign body. XR/XR femur RT min 2V* [id number] IMPRESSION: 1. No acute fracture of the the right femur. Followup imaging recommended in 7-14 days if clinical concern for fracture persists. 2. Small osteophyte at the inferior aspect of the patella. ? Dictated By: Amanda Cronin MD Signed By: Amanda Cronin MD Signed Date/Time: 03/27/21 1747 DD/ 1607 [employer] [facility] [address] [facility] [place] [address] XRay Report Signed Patient: Benjamín Pritchard Unit #: [id number] : 1965 Age/Sex: 56 / F ADM Date: 03/27/21 Loc: ER Room/Bed: Attending Dr: Ordering Provider/Ordering MD: Eve Taylor MD Date of Service: 03/27/21 Procedure(s): XR knee RT 3V* [id number] Accession Number(s): [id number] Report Number: [id number] WS: [id number] Right knee, 3 views, 03/27/2021 Clinical Data: knee pain Comparison: None. Findings: No fractures or dislocations are seen. The joint spaces are normal. The patella is intact. The soft tissues are unremarkable. XR/XR knee RT 3V* 12200 Impression: Negative right knee. ? Kellgren-Hima Classification: ? Dictated By: Magui Apple MD Signed By: Magui Apple MD Signed Date/Time: 03/27/21 1546 DD/ 1545 Discharge Plan Discharge Patient Disposition: Home Clinical Impression: Acute hip pain, Acute leg pain Condition: Stable Prescriptions: New acetaminophen 500 mg tablet 500 mg PO Q6H PRN (Reason: pain) 5 Days Qty: 20 0RF lidocaine 5 % adhesive patch,medicated 1 patch topical DAILY PRN (Reason: pain) 30 Days Qty: 30 0RF Rx Instructions: leave on most painful area for up to 12 hrs aloe vera Gel 1 applic topical DAILY PRN (Reason: pain) 10 Days Qty: 170 0RF Biofreeze (menthol) 5 % gel 1 ea topical BID PRN (Reason: pain) 10 Days Qty: 1 0RF No Action lisinopril 5 mg tablet 5 mg PO BID Qty: 60 2RF prednisone 10 mg tablets,dose pack See Rx Instructions PO PER PKG DIR Qty: 21 0RF Rx Instructions: PO PER PKG DIR cephalexin 500 mg capsule 500 mg PO BID 10 Days Qty: 20 0RF hydrocodone-acetaminophen 5-325 mg tablet 1 tab PO Q6H PRN (Reason: pain) 5 Days Qty: 15 0RF (DME) Bone Growth Stimulator See Rx Instructions .Route .MEDSUPPLY Qty: 1 0RF Rx Instructions: As directed diclofenac sodium 50 mg tablet,delayed release (DR/EC) 50 mg PO BID PRN (Reason: Pain) 0RF gabapentin 600 mg tablet 600 mg PO TID PRN (Reason: Pain) 0RF ibuprofen 800 mg tablet 800 mg PO Q8H PRN (Reason: Pain) 0RF Discharge Orders: Discharge ED (Routine); Ordered 03/27/21 Ordered By: Eve Taylor Referrals: Jovany Morelos FNP [Primary Care Provider] - Discharge Diet: Advance as tolerated Discharge Activity: Increase activity as tolerated Patient Instructions: Leg Pain (ED) Activity Restrictions/Additional Instructions: Our skilled nursing case manager will have you follow-up with an orthopedic provider in the next few days. You would be expected to have a phone call with our skilled nursing case manager who will put you on the schedule. You can expect a call from us in the next 2-3 days. If not please call back to the emergency room and will confirm the appointment. Please come back to the emergency room if your pain worsens, you have any fever or chills, redness, drainage, any new extreme complaints. Coding Level of Care Code ED Debt Recovery Officer for [employer]uan [employer]wjaz[employer] Exam Comprehensive
--- NOTE | 2021-03-27 17:22 | PC.NURSE ---
patient helped to roll onto left side for comfort. patient denies further questions/concerns upon exit of room. call light within reach. patient instructed of need to hit call light. patient denies questions.
--- NOTE | 2021-03-27 17:40 | PC.NURSE ---
patient transported to restroom via wheelchair with no difficulties . patient returned to room and placed in bed and repositioned for comofrt. patient denies further complaints/concerns . call light within reach.
[2021-03-27 18:45] VITALS: BP 159/100; PULSE 91; RESP 20; TEMP 36.7; O2SAT 96
[2021-03-27 18:46] VITALS: BP 159/100; PULSE 91; RESP 20; TEMP 36.7; O2SAT 96
--- NOTE | 2021-03-30 09:13 | DCPLANNER ---
Addendum entered by Keily Reaves 04/09/21 14:46: Patient had a follow up appointment scheduled for 04.06.21 with ortho - patient did attend appointment. Addendum entered by Keily Reaves 04/03/21 11:06: Patients appointment scheduled for 04.01.21 was rescheduled for 04.06.21. Addendum entered by Keily Reaves 03/31/21 07:39: Patient has a follow up appointment scheduled for Thursday, April 01, 2021 at 2:[address] Piedra at ortho. Clinic will call patient with appointment information. Original Note: restaurant service manager had message to schedule a follow up appointment for patient with ortho. restaurant service manager called the ortho clinic spoke with Denise, gave clinic patients information. restaurant service manager was told that patients information will be printed and reviewed. Clinic will call patient with appointment information.
== END 2021-03-27 18:48 | disposition home or self-care (01) ==
PROVIDERS: Emergency Provider Emergency Medicine; PCP Registered Nurse
DX: M25.561 Pain in right knee (principal); M79.604 Pain in right leg; I10 Essential (primary) hypertension; F17.210 Nicotine dependence, cigarettes, uncomplicated
CPT/HCPCS: 73502; 73552; 73562; 99283

== ENCOUNTER 2021-06-25 13:09 | Outpatient (CLI) | payer MEDICAID, SELFPAY ==
--- NOTE | 2021-06-25 13:00 | MR_ITS ---
WS: [id number] MRI RIGHT KNEE HISTORY: M25.561 - Pain in right knee COMPARISON: 03/27/2021 Quality of this examination is significantly compromised by motion. Patient was unable to remain stil l for this examination due to back pain. Anterior cruciate ligament: Intact. Posterior cruciate ligament: Intact. Medial collateral ligament: Intact. Posterior lateral corner structures: Intact. Medial menisci: Abnormal signal and small caliber posterior horn. Some of these changes may be relate d to motion artifact but I believe there is probably a complex tear in the posterior horn extending t owards the meniscal root. Anterior horn is more normal caliber. Lateral meniscus: No definite tear. Extensor mechanism: Distal quadriceps tendon and patellar tendons are intact. Fluid and soft tissue: Moderate-sized suprapatellar joint effusion. No Flanagan's cyst. Osseous and articular structures: Patellofemoral compartment: Mild chondromalacia patella and joint space narrowing. Marrow edema along the patellar eminence. Medial compartment: Mild narrowing of the medial compartment. Loss of cartilage along the weightbeari ng surface greatest towards the intercondylar notch. This is the same location as the meniscal tear. There is also small amount of edema within the femoral condyle and tibial plateau. Lateral compartment: Mild narrowing. The cartilage is very poorly visualized. MR/MR knee RT wo con* [id number] IMPRESSION: 1. This study is significantly compromised due to motion artifact. Patient was unable to remain still secondary to back pain. 2. Complex tear posterior horn medial meniscus. 3. Mild narrowing medial compartment with loss of cartilage. There is also sma ll amount of marrow edema in the femoral condyle and tibial plateau. 4. Mild patellofemoral joint space narrowing and chondromalacia. 5. Moderate-sized suprapatellar joint effusion.
== END 2021-06-25 13:10 | disposition home or self-care (01) ==
PROVIDERS: PCP Registered Nurse; Visit Provider Orthopaedic Surgery
DX: S83.231A Complex tear of medial meniscus, current injury, right knee, initial encounter (principal); X58.XXXA Exposure to other specified factors, initial encounter; M25.461 Effusion, right knee; M25.561 Pain in right knee
CPT/HCPCS: 73721

== ENCOUNTER → 2021-07-21 09:48 | Outpatient (BNVA) | payer MEDICAID, SELFPAY | PROVIDERS: PCP Registered Nurse; Visit Provider Orthopaedic Surgery | DX: M23.306 Other meniscus derangements, unspecified meniscus, right knee (principal) | CPT/HCPCS: 99213 ==

== ENCOUNTER 2021-08-06 09:18 | Day surgery (SDC) | payer MEDICAID, SELFPAY ==
[2021-08-05 10:22] VITALS: BMI 36.0
[2021-08-06] VITALS (8 sets, daily range): BP systolic 127–142; BP diastolic 85–96; PULSE 87–101; RESP 14–21; TEMP 36.2–36.6; O2SAT 96–99
--- NOTE | 2021-08-06 10:09 | ANES.PREANE2 ---
Pre-Anesthetic Assessment Height/Weight: Height 1.63 m Weight 95.254 kg Temp Pulse Resp BP Pulse Ox 97.7 F 101 H 18 127/92 99 08/06/21 09:45 08/06/21 09:45 08/06/21 09:45 08/06/21 09:45 08/06/21 09:45 Preop Diagnosis: Right knee scope with Operation Date: 08/06/21 10:55 Proposed Procedures p right knee arthroscopy with meniscectomy/ 10884,M23.306(Right) - Gagan Piedra MD Familial anesthetic complications: none Last intake: Intake Last Liquid Date 08/05/21 Last Liquid Time 23:30 Last Solid Date 08/05/21 Last Solid Time 23:30 Social Tobacco and No alcohol Exam alert, oriented x 3, clear to auscultation bilaterally and regular rate & rhythm Airway Submandibular: within normal limits Cervical ROM: within normal limits Mallampati: Class II Dentition: false Pulmonary None reported CV/HEM Hypertension METS > 4 None reported Hepatic None reported GI None reported Metabolic None reported Musc/skel Osteoarthritis/DJD Cervical neck pain Anesthetic Plan ASA status: 3 (56 year old obese smoker with hx of HTN and chronic neck pain due to spondylolisthesis ) Other: We discussed risk and benefits of general anesthesia including PONV, sore throat (sometimes severe), corneal abrasion, positioning and peripheral nerve injuries, life threatening allergic reaction, post operative ICU admission requiring prolonged intubation, aspiration, stroke, heart attack, , and rare incidences of recall. Patient consents to proceed with general anesthesia. Risk of > 500 ml blood loss (7ml/kg in children): No Other Pertinent Information Beta block last taken 08/04/21 Medications/Allergies Home Medications Medication Instructions Recorded Confirmed Last Taken Type Bone Growth Stimulator #1 ea 12/14/19 08/05/21 Unknown Rx ibuprofen 800 mg tablet 800 mg PO Q8H PRN 03/27/21 08/05/21 Unknown History gabapentin 600 mg tablet 600 mg PO TID PRN 90 Days #180 tab 06/02/21 08/06/21 Unknown Rx lisinopril 10 1 tab PO DAILY 90 Days #90 tab 06/02/21 08/06/21 08/05/21 Rx mg-hydrochlorothiazide 12.5 mg tablet metoprolol tartrate 25 mg tablet 25 mg PO QPM 08/05/21 08/06/21 08/04/21 History Allergies Allergy/AdvReac Type Severity Reaction Status Date / Time No Known Allergies Allergy Verified 07/21/21 09:50 [facility] Anesthesia Medical History Cervical disc disorder with myelopathy of mid-cervical region Chronic neck pain Essential hypertension Spondylolisthesis of cervical region Surgical History History of cholecystectomy Hx of tonsillectomy S/P lumbar laminectomy 08/17/2018 Dr. Jerry Davis: Right L4-L5 laminotomy/discectomy/foraminotomy, reexploration. 09/29/2017 Dr. Jerry Davis Right L4-L5 hemilaminotomy/discectomy/foraminotomy Family History Brother Cancer Mother Lung disease Social History Smoking and tobacco status: current every day smoker Alcohol intake: never Household members: other Details: room mate Marital status: Current occupational status: disabled History of recent travel: No Data Anesthesia Cardiac Studies: No Data to Display
[2021-08-06] MEDS: metoprolol tartrate 1 mg/1 mL SDV 5 mL 2.5 MG IVP (10:24)
[2021-08-06] MEDS: sodium chloride 0.9% 1,000 ML 30 ML IV (10:26)
[2021-08-06 10:51] LABS: OR HCG Qualitative Urine Negative (Negative)
--- NOTE | 2021-08-06 11:06 | W.PM.OPSFHP ---
Same Day Surgery H&P Indication for Procedure/HPI DATE OF PROCEDURE: August 06, 2021 CHIEF COMPLAINT/INDICATIONFOR SURGICAL PROCEDURE: Right medial meniscal tear PREOP DIAGNOSIS: Right medial meniscal tear PLANNED PROCEDURE: Operation Date: 08/06/21 10:55 Proposed Procedures p right knee arthroscopy with meniscectomy/ 68720,M23.306(Right) - Gagan Piedra MD Developed atrial tach onset pain in her right knee in February of this year. The pain has been intermittent but increasing in severity. MRI showed degeneration of the medial meniscus as well as early degenerative changes in the medial compartment. The patient has been counseled as to the limitations of arthroscopy and dealing with meniscal tears in the presence of arthritis. She feels her symptoms are significant enough and she agrees to proceed Medications/Allergies* Home Medications Medication Instructions Recorded Confirmed Type ibuprofen 800 mg tablet 800 mg PO Q8H PRN 03/27/21 08/05/21 History metoprolol tartrate 25 mg tablet 25 mg PO QPM 08/05/21 08/06/21 History Allergies/Adverse Reactions Allergy/AdvReac Type Severity Reaction Status Date / Time No Known Allergies Allergy Verified 07/21/21 09:50 Current Medications: Generic Name Dose Route Start Last Admin Trade Name Freq PRN Reason Stop Dose Admin Sodium Chloride 1,000 mls @ 30 mls/hr 08/06/21 09:30 08/06/21 10:26 Sodium Chloride 0.9% IV 08/07/21 09:29 30 mls/hr .Q24H RUIZ Administration Pertinent History/Comorbid Conditions* Medical History (Updated 06/03/21 @ 10:05 by DARRIUS Kramer) Cervical disc disorder with myelopathy of mid-cervical region Chronic neck pain Essential hypertension Spondylolisthesis of cervical region Surgical History (Updated 11/15/19 @ 09:31 by Ailyn Bone APRN) History of cholecystectomy Hx of tonsillectomy S/P lumbar laminectomy 08/17/2018 Dr. Jerry Davis: Right L4-L5 laminotomy/discectomy/foraminotomy, reexploration. 09/29/2017 Dr. Jerry Davis Right L4-L5 hemilaminotomy/discectomy/foraminotomy Family History (Updated 04/02/19 @ 16:21 by aDphney Baker LPN) Lung disease Mother Cancer Brother Social History Smoking and tobacco status: current every day smoker Alcohol intake: never Household members: other Details: room mate Marital status: Current occupational status: disabled History of recent travel: No Pertinent Exam Findings alert, oriented x 3, clear to auscultation bilaterally, regular rate & rhythm, operative site marked and procedure specific exam findings Pertinent Data MRI results right knee 1.? This study is significantly compromised due to motion artifact. Patient was unable to remain still secondary to back pain. 2.? Complex tear posterior horn medial meniscus. 3.? Mild narrowing medial compartment with loss of cartilage. There is also small amount of marrow edema in the femoral condyle and tibial plateau. 4.? Mild patellofemoral joint space narrowing and chondromalacia. 5.? Moderate-sized suprapatellar joint effusion. Recommendations Surgery/Procedure today Coding Level of Care Code Acute Research Chemical Engineer for Tuan Bone
[2021-08-06] MEDS: morphine 4 mg/mL SDV 1 mL 8 MG XX (12:05)
[2021-08-06] MEDS: fentaNYL 50 mcg/mL INJ 2mL IVP (12:35)
--- NOTE | 2021-08-06 12:37 | PM.OP ---
Operative Report Date of procedure: August 06, 2021 Pre-op diagnosis: Preop Diagnosis Right medial meniscal tear Post-op diagnosis: same Post-op diagnosis: Right medial meniscal tear, chondromalacia medial femoral condyle, patella, trochlea Procedure done: Arthroscopic right medial, arthroscopic chondroplasty patella and trochlea, arthroscopic chondroplasty medial femoral condyle Pathology: none sent Surgeon: Gagan Piedra Anesthesia: General Estimated blood loss (mL): 5 Findings: Benjamín had a flap tear involving approximately 60% of the thickness the posterior meniscus just medial to the meniscal root. She had thinning of the medial femoral condyle that was thought to be at least 50% of the thickness of the cartilage. She had clearly global thickening over the patella and the central trochlea representing at least 50% of the cartilaginous thickness as well with unstable peripheral flaps and fissures over both Condition: stable Disposition: PACU Procedure: The patient was taken to the operating room and given a general anesthesia. He was given 2 g of Ancef. Her left lower extremity was prepped and draped in the usual fashion. The knee was infiltrated with 30 cc of quarter percent Marcaine and 4 mg of morphine. A timeout was performed. The knee was entered initially through the inferior medial and inferior lateral portal. The diagnostic portion of the arthroscopy was performed and above findings noted. Initial attention was paid to the medial meniscus. The medial flap tear was probed. As the root was felt to be intact, the tear was incomplete and degenerative changes were identified over the medial femoral condyle. Decision was made to proceed with a arthroscopic partial meniscectomy. A straight basket was introduced to the medial portal and the unstable flap debrided back. The posterior third of the medial meniscus was then trimmed back to stable tissue with the Childers and Nephew Werewolf probe. This left approximately 40 to 50% of the posterior medial meniscus remaining. Attention was then focused to the medial femoral condyle. Utilizing an incisor shaver unstable flaps and fissures noted. Weightbearing aspect the medial femoral condyle. The margins were then stabilized with the werewolf cautery leaving a stable base of tissue. At no point was exposed subchondral bone but thickness or remaining cartilage was thought to represent less than 50% of the over the medial femoral condyle. The lateral compartment was inspected and found to be healthy. Final attention was focused on the trochlea and patella. Utilizing the werewolf cautery unstable flaps of vision along the medial and lateral border the trochlea were debrided back to a stable base. Again substantial cartilaginous loss was noted but no exposed subchondral bone was identified. Final attention was focused to the medial lateral facet of the patella. Utilizing an incisor shaver unstable flaps of cartilage were removed. The margins were then addressed with the werewolf cautery leaving a stable base of tissue, representing less than 50% with normal patellar cartilaginous thickness. The knee was irrigated with saline. Portals were closed with 3-0 Prolene. Sterile dressings were applied. The patient was extubated and taken to recovery room in stable condition.
[2021-08-06] MEDS: HYDROcodone-acetaminophen 5-325 mg Tablet 1 TAB PO (13:20)
--- NOTE | 2021-08-06 14:49 | ANE.PACU2 ---
Inpatient post-anesthesia follow up: Airway intact: Yes Vital signs: Temperature 97.1 F Pulse Rate 88 Respiratory Rate 18 Blood Pressure 132/90 Pulse Oximetry 98 Oxygen Delivery Me thod Room Air Oxygen Flow Rate Fraction of Inspir ed Oxygen Hydration adequate: Yes Nausea and vomiting: No Pain level: 5 Mental status: Baseline
== END 2021-08-06 13:40 | disposition home or self-care (01) ==
PROVIDERS: Anesthesiology; PCP Registered Nurse; Visit Provider Orthopaedic Surgery
PROC: (CPT 29870; principal; 2021-08-06 10:45)
DX: S83.241A Other tear of medial meniscus, current injury, right knee, initial encounter (principal); X58.XXXA Exposure to other specified factors, initial encounter; I10 Essential (primary) hypertension; F17.210 Nicotine dependence, cigarettes, uncomplicated
CPT/HCPCS: 29881; 81025; 84703; J1100; J2270; J2405; J2704; J3010; J3490; J7030

== ENCOUNTER → 2021-08-11 14:26 | Outpatient (BNVA) | payer MEDICAID, SELFPAY | PROVIDERS: PCP Registered Nurse; Visit Provider Nurse Practitioner Family | DX: Z98.890 Other specified postprocedural states (principal) | CPT/HCPCS: 99024 ==

== ENCOUNTER → 2021-09-08 13:09 | Outpatient (BNVA) | payer MEDICAID, SELFPAY | PROVIDERS: PCP Registered Nurse; Visit Provider Nurse Practitioner Family | DX: Z98.890 Other specified postprocedural states (principal) | CPT/HCPCS: 99024 ==

== ENCOUNTER → 2021-12-14 10:30 | Outpatient (BNVA) | payer MEDICAID, SELFPAY | PROVIDERS: PCP Registered Nurse; Visit Provider Nurse Practitioner Family | DX: Z98.890 Other specified postprocedural states (principal) | CPT/HCPCS: 99213 ==

== ENCOUNTER → 2021-12-30 08:53 | Outpatient (BNVA) | payer MEDICAID, SELFPAY | PROVIDERS: PCP Registered Nurse; Visit Provider Nurse Practitioner Family | DX: Z71.89 Other specified counseling (principal) | CPT/HCPCS: 20610; 99213; J1100; J2795; J3301 ==

== ENCOUNTER → 2022-01-04 14:36 | Outpatient (BNVA) | payer MEDICAID, SELFPAY | PROVIDERS: PCP Registered Nurse; Visit Provider Nurse Practitioner Family | DX: M17.11 Unilateral primary osteoarthritis, right knee (principal) | CPT/HCPCS: 73560; 73565; 99213 ==

== ENCOUNTER → 2022-01-12 14:15 | Outpatient (BNVA) | payer MEDICAID, SELFPAY | PROVIDERS: PCP Registered Nurse; Visit Provider Physician Assistant | DX: Z98.890 Other specified postprocedural states (principal); M51.36 Other intervertebral disc degeneration, lumbar region | CPT/HCPCS: 72110; 99203 ==

== ENCOUNTER 2022-02-11 07:13 | Outpatient (CLI) | payer MEDICAID, SELFPAY ==
--- NOTE | 2022-02-11 07:15 | MR_ITS ---
WS: [id number] MRI LUMBAR SPINE NONCONTRAST TECHNIQUE: Sagittal T1, T2 and STIR imaging. Axial T1 and T2 imaging. CLINICAL INFORMATION: lower back pain COMPARISON: MRI 2019 FINDINGS: Mild lumbar curve. No acute compression. Slight retrolisthesis L3 on L4 and L4 on L5. Disc desiccatio n worse L4-L5 with endplate degenerative changes. Slight disc desiccation L4-L5 has progressed compar ed to previous. Postoperative changes L4-L5 hemilaminectomy with discectomy appears revised compared to previous. L1-L2: Normal. L2-L3: No significant disc bulging. Mild facet arthropathy. Spinal canal and foramen are patent. L3-L4: Slight retrolisthesis. Mild annular bulging with a shallow central disc protrusion. Moderate c entral canal stenosis appears progressed compared to previous. Impingement traversing L4 nerve roots LEFT greater than RIGHT. Mild facet arthropathy. Foramen are patent. Central disc protrusion at this level has progressed. L4-L5: Disc desiccation. Postoperative changes hemilaminectomy with discectomy. Mild residual narrowi ng of the RIGHT subarticular recess. Mild facet arthropathy. Spinal canal stenosis has improved. Mild bilateral foraminal narrowing. L5-S1: Mild annular bulging. Slight effacement of ventral thecal sac. RIGHT foraminal protrusion cont acts the exiting RIGHT L5 nerve root laterally. Spinal canal and LEFT foramen are patent. Mild facet arthropathy. Visualized pelvic bony structures: Normal. Paravertebral soft tissues: Normal. Prior postoperative changes cervical spine fusion on the administrative assistant receptionist imaging. Incidental hemangioma T8.. MR/MR lumbar spine wo con* [id number] IMPRESSION: 1. Postoperative changes L4 laminectomy with discectomy revised compared to pr evious. Disc desiccation L4-L5 has progressed. 2. Moderate central canal stenosis L3-L4 with a shallow central disc protrusio n impinging the traversing L4 nerve roots bilaterally. This is progressed lorene red to previous. Impingement worse traversing LEFT L4 nerve root. Recommend cor relation LEFT L4 nerve root symptoms. 3. Spinal canal has been decompressed at the L4-L5 level with minimal residual narrowing of the RIGHT subarticular recess. 4. Small RIGHT foraminal protrusion L5-S1 contacts the exiting RIGHT L5 nerve root laterally. This is similar compared to previous. 5. Slight retrolisthesis L3 on L4 and L4 on L5 appears slightly progressed.
== END 2022-02-11 07:14 | disposition home or self-care (01) ==
LOC: RAD 07:15
PROVIDERS: PCP Registered Nurse; Visit Provider Physician Assistant
DX: Z98.890 Other specified postprocedural states (principal); M51.27 Other intervertebral disc displacement, lumbosacral region; M48.061 Spinal stenosis, lumbar region without neurogenic claudication
CPT/HCPCS: 72148

== ENCOUNTER → 2022-02-16 08:32 | Outpatient (BNVA) | payer MEDICAID, SELFPAY | PROVIDERS: PCP Registered Nurse; Visit Provider Physician Assistant | DX: M51.36 Other intervertebral disc degeneration, lumbar region (principal); M54.50 Low back pain, unspecified; M79.604 Pain in right leg | CPT/HCPCS: 99213 ==

== ENCOUNTER → 2022-03-25 09:37 | Outpatient (BNVA) | payer MEDICAID, SELFPAY | PROVIDERS: PCP Registered Nurse; Visit Provider Physician Assistant | DX: M47.816 Spondylosis without myelopathy or radiculopathy, lumbar region (principal); M54.50 Low back pain, unspecified; M79.604 Pain in right leg; M51.36 Other intervertebral disc degeneration, lumbar region | CPT/HCPCS: 99213 ==

== ENCOUNTER 2022-04-12 16:07 | Inpatient (IN) | payer MEDICAID, SELFPAY ==
[2022-04-07 09:51] VITALS: BMI 38.7
--- NOTE | 2022-04-07 15:35 | ANES.PREANE2 ---
Pre-Anesthetic Assessment Height/Weight: Height 1.63 m Weight 102.512 kg Preop Diagnosis: Right medial meniscal tear Operation Date: 04/12/22 12:40 Proposed Procedures p Posterior Lumbar Interbody Fusion: L3 to Pelvis fusion with decomp , PLIF L4-5 L5-S1 with S1- [id number](Not Applicable) - DO alexandro Aguila Lumbar Spine Decompression(Not Applicable) - Kishore Xavier DO Familial anesthetic complications: none Was Beta Tanja taken within 24 hours: Yes Was Clonidine taken within 24 hours: N/A Social Tobacco and No alcohol Exam alert, oriented x 3 and regular rate & rhythm Airway Submandibular: within normal limits Cervical ROM: within normal limits Mallampati: Class II Dentition: false Pulmonary Chronic Obstructive Pulmonary Disease CV/HEM Hypertension Metabolic Morbid Obesity [facility] Lower Back Pain and Osteoarthritis/DJD Anesthetic Plan ASA status: 3 Anesthesia: General Other: Discussed a.line and transfusion Medications/Allergies Home Medications Medication Instructions Recorded Confirmed Last Taken Type metoprolol tartrate 25 mg tablet See Rx Instructions .Route 10/21/21 04/07/22 04/06/22 Rx .COMPLEX #30 tabs potassium chloride 10 mEq 10 meq PO DAILY #90 tabs 11/12/21 04/07/22 04/06/22 Rx tablet,extended release tramadol 50 mg tablet 50 mg PO Q6H PRN pain #30 tabs 02/17/22 04/07/22 Unknown Rx lisinopril 10 See Rx Instructions .Route 03/08/22 04/07/22 04/06/22 Rx mg-hydrochlorothiazide 12.5 mg .COMPLEX #90 tabs tablet chlorthalidone 25 mg tablet 25 mg PO DAILY 90 days #90 tabs 03/11/22 04/07/22 04/06/22 Rx gabapentin 600 mg tablet See Rx Instructions .Route 03/11/22 04/07/22 Unknown Rx .COMPLEX #180 tabs acetaminophen 500 mg tablet 500 mg PO Q6H PRN Pain 03/18/22 04/07/22 Unknown History (Tylenol Extra Strength) Allergies Allergy/AdvReac Type Severity Reaction Status Date / Time No Known Allergies Allergy Verified 03/25/22 09:40 [facility] Anesthesia Medical History Cervical disc disorder with myelopathy of mid-cervical region Chronic neck pain Essential hypertension Spondylolisthesis of cervical region Surgical History History of cholecystectomy Hx of tonsillectomy S/P lumbar laminectomy 08/17/2018 Dr. Jerry Davis: Right L4-L5 laminotomy/discectomy/foraminotomy, reexploration. 09/29/2017 Dr. Jerry Davis Right L4-L5 hemilaminotomy/discectomy/foraminotomy Family History Brother Cancer Mother Lung disease Social History Smoking and tobacco status: current some day smoker cigarettes Quit status (tobacco): considering quitting Alcohol intake: never Household members: other Details: room mate Marital status: Current occupational status: disabled Data Anesthesia Cardiac Studies: No Data to Display
[2022-04-12] VITALS (16 sets, daily range): BP systolic 92–129; BP diastolic 55–86; PULSE 68–91; RESP 16–19; TEMP 36.1–36.7; O2SAT 92–100
[2022-04-12] MEDS: sodium chloride 0.9% 1,000 ML 30 ML IV (11:14)
--- NOTE | 2022-04-12 11:42 | W.PM.OPSUD ---
Surgery/Procedure H&P Update DATE OF PROCEDURE: April 12, 2022 DATE H&P PERFORMED: 03/25/22 H&P UPDATE INFORMATION: I have reviewed H&P completed within last 30 days, I have examined patient prior to procedure and No changes to prior documentation PREOP DIAGNOSIS: Right medial meniscal tear PLANNED PROCEDURE: Operation Date: 04/12/22 12:40 Proposed Procedures p Posterior Lumbar Interbody Fusion: L3 to Pelvis fusion with decomp , PLIF L4-5 L5-S1 with S1-Joint Fusion [id number](Not Applicable) - Kishore Xavier DO s Lumbar Spine Decompression(Not Applicable) - Kishore Xavier DO
[2022-04-12 12:24] LABS: Blood Urea Nitrogen 26 mg/dL (6-20); Calcium 9.4 mg/dL (8.5-10.5); Carbon Dioxide 26 mmol/L (22-29); Chloride 95 mmol/L (98-107); Glomerular Filtration Rate 64.5 mL/min (90-130); Glucose 209 mg/dL (65-115); Osmolality Calculated 289 mOsm/kg (285-295); Sodium 134 mmol/L (136-145)
[2022-04-12 12:25] LABS: Anion Gap 17.5 (5-19); Potassium 4.5 mmol/L (3.5-5.1)
[2022-04-12] MEDS: ceFAZolin 2,000 MG in sodium chloride 0.9% (plus) 50 ML 100 MG IV ×2 (12:41→20:34)
[2022-04-12] MEDS: lidocaine-epi 1% 20 mL INJ INJECTION (13:21)
[2022-04-12] MEDS: heparin, porcine 1,000 unit/mL INJ 10 mL 10000 UNIT IRRIGATION (13:22)
[2022-04-12] MEDS: vancomycin 1,000 MG SDV 1000 MG XX (13:23)
--- NOTE | 2022-04-12 15:43 | PM.OP ---
Operative Report Date of procedure: April 12, 2022 Pre-op diagnosis: Preop Diagnosis lumbar stenosis with neurogenic claudication Post-op diagnosis: same Procedure done: 1. L4/5 Interbody fusion with posterolateral fusion 2. L5/S1 Interbody fusion with posterolateral fusion 3. Instrumentation L3- S1 4. Cage at L4/5 5. Cage L5/S1 6. Laminectomy L4/5 with facetectomies 7. Laminectomy L5/S1 with facetctomies 8. Use of computer navigation/steeotactic for spine 9. Bone marrow aspirate from right iliac crest 10. use of autograft from same incision 11. use of allograft 12. Revision of L4/5 level from previous laminectomy Surgeon: Kishore Xavier Mechanist: Mann Serna Mechanist: The assistant passenger locomotive engineer, Mann Serna, PAC was needed for his expertise under the microscope. He was important and necessary throughout the procedure to complete in a safe and timely manner. He assisted with patient positioning prepping and draping tissue retraction suctioning of the operative field protection of the dural sac and tissue closure Estimated blood loss (mL): 500 Procedure: 1. L4/5 Interbody fusion with posterolateral fusion 2. L5/S1 Interbody fusion with posterolateral fusion 3. Instrumentation L3- S1 4. Cage at L4/5 5. Cage L5/S1 6. Laminectomy L4/5 with facetectomies 7. Laminectomy L5/S1 with facetctomies 8. Use of computer navigation/steeotactic for spine 9. Bone marrow aspirate from right iliac crest 10. use of autograft from same incision 11. use of allograft 12. Revision of L4/5 level from previous laminectomy Patient is brought to the operative suite. After undergoing anesthesia, the patient had neuro monitoring attached. Patient was then placed in the prone position on the Ruslan table. All areas of impingement were well-padded. Patient was then prepped and draped in the normal sterile fashion. Skin incision was then made over the L3 to S1 levels. Subperiosteal dissection was made out to the transverse processes of [id number], L4 bilaterally, L5 bilateraly and [id number]. [employer] bone marrow aspirate kit was used to aspirate bone marrow aspirate right iliac crest. This was done by using the sharp probe to open up the bone. Aspiration was performed and then the blunt probe was then used to dissect down to through the bone tunnel. An aspirating well drawn back a millimeter approximately 20 cc of bone marrow aspirate was used. And mixed with the allograft and autograft bone that will be used. The fiducial for the computer navigation was then attached to the pelvis. This was done by placing 2 pins into the right iliac crest. These pins were removed at the end of the case. Once the fusion was attached serum was brought in and the information was spun around the patient information was loaded in the computer and used for placing the pedicle screws. The technique for placing the pedicle screws was to use a drill followed by the gearshift probe linked to navigation. Followed by the ball probe to feel the superior inferior medial lateral azar of the pedicles leading to navigation. Then placement of the screws. Was done at each pedicle. Screws were placed at L3 bilaterally and L4 bilaterally L5 bilaterally and S1 bilaterally.. Next attention was brought to performing the laminectomy ofL4. This was done using the high-speed bur Kerrisons and curettes. Once the lamina was removed and then attention was brought to performing a partial facetectomy on the contralateral side. This was done again using the high-speed bur curettes and Kerrisons. This level was revision. There was significant mount of scar tissue at the L4 pedicle on the right side. The ligamentum flavum was taken down bilaterally from L4 to L5. Attention was then brought to the facet on the ipsilateral side. The facet was taken down. The L5 nerve was decompressed as it passed around the L5 pedicle. The laminectomy was done for purposes of decompressing the nerve as well as placement of the cage. The L4 nerve was identified as it traversed through the L4/5 foramen. The thecal sac was identified and retracted. The L4/5 disc base was identified. Using a knife the disc base was opened. And then sequential evelyn were placed. The first shaver was a 6 and the last shaver was a 7. Using a pituitary and down going curette the endplates were scraped and disc material was removed from the space. Once adequate decompression of the disc base was felt to be had. Osteoamp sponge was packed into the anterior aspect of the disc base. Then a size 7 cage from [employer] was placed after packing osteoamp into the cage. While placing the cage the thecal sac and L5 nerve was protected. C arm was used to ensure that the cages placed in the appropriate position. Next attention was brought to performing the laminectomy of L5. This was done using the high-speed bur Kerrisons and curettes. Once the lamina was removed and then attention was brought to performing a partial facetectomy on the contralateral side. This was done again using the high-speed bur curettes and Kerrisons. The ligamentum flavum was taken down bilaterally from L5 to S1. Attention was then brought to the facet on the ipsilateral side. The facet was taken down. The S1 nerve was decompressed as it passed around the S1 pedicle. The laminectomy was done for purposes of decompressing the nerve as well as placement of the cage. The L5 nerve was identified as it traversed through the L5/S1 foramen. The thecal sac was identified and retracted. The L5/S1 disc base was identified. Using a knife the disc base was opened. And then sequential evelyn were placed. The first shaver was a 6 and the last shaver was a 8. Using a pituitary and down going curette the endplates were scraped and disc material was removed from the space. Once adequate decompression of the disc base was felt to be had. Osteoamp sponge was packed into the anterior aspect of the disc base. Then a size 9 cage from [employer] was placed after packing osteoamp into the cage. While placing the cage the thecal sac and S1 nerve was protected. C arm was used to ensure that the cages placed in the appropriate position. Attention was then brought to attaching the rods to the screws placed in the L3 bilaterally, L4 Bilaterally, L5 Bilaterally and S1 bilateraly. Caps were torqued into position. Locking the construct in place. Wound was copiously irrigated and then attention was brought to decorticating the facets and transverse processes laterally. Bone that was taken down from the lamina was used along with osteoamp fibers and sponges were packed into the lateral gutters along the facet joints. This was done bilaterally. Wound was then closed in a layered fashion starting with the thoracolumbar fascia. 0-vicryl was used the sub cutaneous tissue was closed with 2-0 vicryl and skin with 4-0 monocryl. Glue was then used to seal the skin and a steril dressing was applied. Patient was then placed in the supine position. The endotracheal tube was removed and patient was transferred to the PACU in stable condition.
--- NOTE | 2022-04-12 16:30 | ANE.PACU2 ---
Inpatient post-anesthesia follow up: Airway intact: Yes Vital signs: Temperature 97.5 F Pulse Rate 85 Respiratory Rate 17 Blood Pressure 93/63 Pulse Oximetry 96 Oxygen Delivery Me thod Nasal Cannula Oxygen Flow Rate 2 Fraction of Inspir ed Oxygen Hydration adequate: Yes Nausea and vomiting: No Pain level: 1 Mental status: Baseline
[2022-04-12] MEDS: ketorolac 30 mg/mL INJ IVP (17:19)
[2022-04-12] MEDS: lactated ringers 1,000 ML 90 ML IV (17:19)
[2022-04-12] MEDS: docusate sodium 100 mg Capsule PO (17:20)
[2022-04-12] MEDS: metoprolol tartrate 25 mg Tablet PO (17:29)
--- NOTE | 2022-04-12 19:27 | PC.NURSE ---
Pt is currently resting in bed with a visitor at bedside. Pt does not complain of pain at this time, only pressure. This nurse and oncoming nurse checked dressing together and no saturation visible. Bedside table and call light are within reach. Pt has no other needs at this time.
[2022-04-12] MEDS: HYDROcodone-acetaminophen 5-325 mg Tablet PO (20:33)
[2022-04-13 04:00] VITALS: BP 104/67; PULSE 87; RESP 16; TEMP 36.4; O2SAT 93
[2022-04-13] MEDS: lactated ringers 1,000 ML 90 ML IV ×2 (04:15→16:07)
[2022-04-13] MEDS: ceFAZolin 2,000 MG in sodium chloride 0.9% (plus) 50 ML 100 MG IV ×2 (04:15→13:21)
[2022-04-13] MEDS: HYDROcodone-acetaminophen 5-325 mg Tablet PO ×4 (04:22→20:53)
--- NOTE | 2022-04-13 06:42 | PC.NURSE ---
Total of 220ml sanguineous drainage emptied from patient's hemavac over this nurse's shift. Patient tolerated well.
--- NOTE | 2022-04-13 07:43 | PM.PN ---
Subjective Subjective: POD 1 Patient resting comfortably. Reports moderate back pain legs feel different. Denies any chest pain, shortness of breath, headaches. Vitals/I&O/Wt Last Vital Signs Temp 97.5 F L 04/13/22 04:00 Pulse 87 04/13/22 04:00 Resp 16 04/13/22 04:00 BP 104/67 04/13/22 04:00 Pulse Ox 93 04/13/22 04:00 O2 Del Method 04/12/22 18:56 O2 Flow Rate 2 04/12/22 16:37 04/12/22 04/13/22 04/13/22 22:59 06:59 14:59 Intake Total 1081 / 1131 1034 / 2165 Output Total 100 / 100 1270 / 1370 Balance 981 / 1031 -236 / 795 Physical Exam Narrative: Patient presents alert and oriented x3 with a good general appearance normal mood and affect. Normal coordination normal stability. Mild tenderness around the incisional site with the incision appear to be clean and dry. No signs of erythema or drainage. No signs of infection. Patient denies any fevers or chills. 5/5 motor strength both lower extremities with negative straight leg raise bilaterally. Calves are supple no medial thigh tenderness. Pulses are 2+ at the dorsalis pedis and posterior tibial region. Good capillary refill throughout normal sensation light touch both lower extremities. Urinary Catheter Management: Bruner: Cath Placed During This Visit: yes Reason for Continuing Indwelling Catheter: Other Urinary Catheter Date of Insertion: 04/12/22 Urinary Catheter Time of Insertion: 13:00 Data 04/12/22 11:11 A&P Assessment and plan (1) Status post lumbar spinal fusion: Physical therapy to work on mobilizing this morning. Encourage incentive spirometry for pulmonary toilet. Obtain an H&H to check her blood levels. Discontinue Bruner catheter this morning. Attestations Medical Necessity Statement*: Home tomorrow Coding Level of Care Code Acute Code for Chg Fwd Diagnoses Status post lumbar spinal fusion Z98.1
[2022-04-13 08:00] VITALS: BP 98/62; PULSE 80; RESP 14; O2SAT 95
[2022-04-13] MEDS: docusate sodium 100 mg Capsule PO ×2 (08:24→17:38)
[2022-04-13] MEDS: potassium chloride ER 10 mEq Tablet PO (08:24)
[2022-04-13] MEDS: hydroCHLOROthiazide 25 mg Tablet 12.5 MG PO (08:24)
[2022-04-13] MEDS: chlorthalidone 25 mg Tablet PO (08:24)
[2022-04-13 08:25] LABS: Hematocrit 34.2 % (37.0-47.0); Hemoglobin 10.6 g/dL (11.5-15.3)
[2022-04-13] MEDS: CELEcoxib 100 mg Capsule PO (08:26)
--- NOTE | 2022-04-13 08:35 | PC.NURSE ---
Notified Dr. Xavier patients blood pressure 98/62. Hold metoprolol and lisinopril.
--- NOTE | 2022-04-13 10:43 | PC.CHAP ---
Pastoral Care Encounter/Spiritual Assessment Type of Contact [] Declined senior office support assistant sosa visit [] Patient/Family/Request visit [] Outpatient visit [] Follow-up visit [] Physician referral [] Code/Alert [] Routine visit [] Staff referral [] Actively dying [x] Patient sleeping [] Family support [] [] Out of room [] Palliative care [] [] Receiving care in room [] Pre-surgical visit [] Trauma [] Long length of stay [] ICU visit [] Other: Relational/Emotional Strength [] Patient feels connected with others/family/visitors/staff [] Distress [] Loneliness/isolation [] Abandonment Spirituality of Patient [] Person of Lela [] Attends Methodist of their Lela [] Believes in Prayer [] Reads Bible or Yazdanism materials [] There are Spiritual issues to be addressed Cupola Mechanic Interventions [] Prayer [] Active listening [] Non-anxious presence [] Spiritual/emotional support [] Crisis/trauma care [] Spiritual counseling [] Bereavement support [] Provided bereavement packet [] Provided Bible/devotional materials [] Provided toy/stuffed animal, coloring book to patient or family member [] Provided Communion [] Anointing/[place] [] Salvation [] Completed spiritual assessment [] Other: Impact on Illness or Injury [] Angry [] Fearful [] Anxious [] Often cries [] Exhaustion [] Unable to work [] Unable to attend restorationist [] Unable to walk/stand [] Unable to read [] Unable to drive [] Unable to eat/drink [] Unable to sleep [] Unable to be with family [] Patient intubated [] Other: Summary Time spent with patient
--- NOTE | 2022-04-13 10:44 | PC.CHAP ---
Pastoral Care Encounter/Spiritual Assessment Type of Contact [] Declined certified athletic trainer visit [] Patient/Family/Request visit [] Outpatient visit [] Follow-up visit [] Physician referral [] Code/Alert [] Routine visit [] Staff referral [] Actively dying [x] Patient sleeping [] Family support [] [] Out of room [] Palliative care [] [] Receiving care in room [] Pre-surgical visit [] Trauma [] Long length of stay [] ICU visit [] Other: Relational/Emotional Strength [] Patient feels connected with others/family/visitors/staff [] Distress [] Loneliness/isolation [] Abandonment Spirituality of Patient [] Person of Lela [] Attends [employer]ybeterian of their Lela [] Believes in Prayer [] Reads Bible or Gnosticist materials [] There are Spiritual issues to be addressed Roller Mechanic Interventions [] Prayer [] Active listening [] Non-anxious presence [] Spiritual/emotional support [] Crisis/trauma care [] Spiritual counseling [] Bereavement support [] Provided bereavement packet [] Provided Bible/devotional materials [] Provided toy/stuffed animal, coloring book to patient or family member [] Provided Communion [] Anointing/[place] [] Salvation [] Completed spiritual assessment [] Other: Impact on Illness or Injury [] Angry [] Fearful [] Anxious [] Often cries [] Exhaustion [] Unable to work [] Unable to attend yazdanism [] Unable to walk/stand [] Unable to read [] Unable to drive [] Unable to eat/drink [] Unable to sleep [] Unable to be with family [] Patient intubated [] Other: Summary Time spent with patient
[2022-04-13 12:00] VITALS: BP 93/63; PULSE 85; RESP 17; O2SAT 96
[2022-04-13 16:00] VITALS: BP 111/70; PULSE 89; RESP 19; TEMP 36.6; O2SAT 95
[2022-04-13] MEDS: metoprolol tartrate 25 mg Tablet PO (17:38)
[2022-04-13] MEDS: ketorolac 30 mg/mL INJ IVP (17:38)
[2022-04-13 20:00] VITALS: BP 97/63; PULSE 87; RESP 17; TEMP 36.7; O2SAT 93
[2022-04-14] VITALS: BP 108/69; PULSE 84; RESP 17; TEMP 36.6; O2SAT 94
[2022-04-14] MEDS: lactated ringers 1,000 ML 90 ML IV (03:23)
[2022-04-14 04:00] VITALS: BP 106/67; PULSE 81; RESP 17; TEMP 36.5; O2SAT 97
--- NOTE | 2022-04-14 06:39 | PM.PN ---
Subjective Subjective: POD 2 Patient resting comfortably. Reports she was ambulating around the floor with improvement of her leg pain mild back pain. Denies any chest pain, shortness of breath or headaches. She indicates that she is wanting to go home. Vitals/I&O/Wt Last Vital Signs Temp 97.7 F 04/14/22 04:00 Pulse 81 04/14/22 04:00 Resp 17 04/14/22 04:00 BP 106/67 04/14/22 04:00 Pulse Ox 97 04/14/22 04:00 O2 Del Method 04/14/22 04:00 O2 Flow Rate 2 04/12/22 16:37 04/13/22 04/13/22 04/14/22 14:59 22:59 06:59 Intake Total 520 / 520 1310 / 1830 1000 / 2830 Output Total 16 / 16 Balance 520 / 520 1294 / 1814 1000 / 2814 Physical Exam Narrative: Patient presents alert and oriented x3 with a good general appearance normal mood and affect. Normal coordination normal stability. Mild tenderness around the incisional site with the incision appear to be clean and dry. No signs of erythema or drainage. No signs of infection. Patient denies any fevers or chills. 5/5 motor strength both lower extremities with negative straight leg raise bilaterally. Calves are supple no medial thigh tenderness. Pulses are 2+ at the dorsalis pedis and posterior tibial region. Good capillary refill throughout normal sensation light touch both lower extremities. Urinary Catheter Management: Bruner: Cath Placed During This Visit: yes Reason for Continuing Indwelling Catheter: Other Urinary Catheter Date of Insertion: 04/12/22 Urinary Catheter Time of Insertion: 13:00 Data 04/13/22 08:19 04/12/22 11:11 A&P Assessment and plan (1) Status post lumbar spinal fusion: Discontinue Hemovac drain. Physical therapy to continue to mobilize. Discussed taking incentive spirometry at home for pulmonary toilet. Have her follow-up in the office in 1 week's time for wound check. She will call if she is having problems. Discussed no bending lifting or twisting activities. Attestations Medical Necessity Statement*: Discharge home this morning. Coding Level of Care Code Acute Code for Chg Fwd Diagnoses Status post lumbar spinal fusion Z98.1
[2022-04-14] MEDS: HYDROcodone-acetaminophen 5-325 mg Tablet PO (07:59)
[2022-04-14] MEDS: CELEcoxib 100 mg Capsule PO (07:59)
[2022-04-14] MEDS: potassium chloride ER 10 mEq Tablet PO (07:59)
[2022-04-14] MEDS: docusate sodium 100 mg Capsule PO (07:59)
[2022-04-14 08:00] VITALS: BP 121/77; PULSE 87; RESP 16; TEMP 36.6; O2SAT 94
[2022-04-14 09:43] VITALS: BP 121/77; PULSE 87; RESP 16; TEMP 36.6; O2SAT 94
== END 2022-04-14 09:44 | disposition home or self-care (01) | DRG 455 ==
LOC: MEDSURG 04-13 01:11
PROVIDERS: Anesthesiology; Physician Assistant; Admitting Provider Orthopaedic Surgery; PCP Registered Nurse; Visit Provider Orthopaedic Surgery
PROC: 0SG00AJ Fusion of Lumbar Vertebral Joint with Interbody Fusion Device, Posterior Approach, Anterior Column, Open Approach (ICD-10-PCS; CPT 22612; principal; 2022-04-12 12:10)
PROC: 0SG00AJ Fusion of Lumbar Vertebral Joint with Interbody Fusion Device, Posterior Approach, Anterior Column, Open Approach (ICD-10-PCS; CPT 63005; 2022-04-12 12:10)
DX: M48.062 Spinal stenosis, lumbar region with neurogenic claudication (principal); M47.816 Spondylosis without myelopathy or radiculopathy, lumbar region; M51.36 Other intervertebral disc degeneration, lumbar region; I10 Essential (primary) hypertension; Z98.1 Arthrodesis status; F17.210 Nicotine dependence, cigarettes, uncomplicated; J44.9 Chronic obstructive pulmonary disease, unspecified; E66.01 Morbid (severe) obesity due to excess calories; Z68.38 Body mass index [BMI] 38.0-38.9, adult
CPT/HCPCS: 36415; 51702; 80048; 85014; 85018; 97161; 97530; C1713; J0131; J0690; J1100; J1170; J1200; J1644; J1885; J2250; J2405; J2710; J3010; J3370; J3490; J7030; J7120

== ENCOUNTER → 2022-04-22 10:17 | Outpatient (BNVA) | payer MEDICAID, SELFPAY | PROVIDERS: PCP Registered Nurse; Visit Provider Physician Assistant | DX: Z98.1 Arthrodesis status (principal) | CPT/HCPCS: 72100; 99024 ==

== ENCOUNTER → 2022-05-06 11:07 | Outpatient (BNVA) | payer MEDICAID, SELFPAY | PROVIDERS: PCP Registered Nurse; Visit Provider Physician Assistant | DX: Z98.1 Arthrodesis status (principal) | CPT/HCPCS: 93971; 99024 ==

== ENCOUNTER → 2022-05-06 11:10 | Outpatient (BNVA) | payer MEDICAID, SELFPAY | PROVIDERS: PCP Registered Nurse; Visit Provider Physician Assistant | DX: Z98.1 Arthrodesis status (principal) | CPT/HCPCS: 72100 ==

== ENCOUNTER → 2022-05-13 10:10 | Outpatient (BNVA) | payer MEDICAID, SELFPAY | PROVIDERS: PCP Registered Nurse; Visit Provider Registered Nurse | DX: K21.9 Gastro-esophageal reflux disease without esophagitis (principal); R73.9 Hyperglycemia, unspecified; I10 Essential (primary) hypertension | CPT/HCPCS: 80053; 83036; 85025 ==

== ENCOUNTER → 2022-06-22 13:03 | Outpatient (BNVA) | payer MEDICAID, SELFPAY | PROVIDERS: PCP Registered Nurse; Visit Provider Physician Assistant | DX: Z98.1 Arthrodesis status (principal) | CPT/HCPCS: 72100; 99024 ==

== ENCOUNTER → 2022-09-27 09:09 | Outpatient (BNVA) | payer MEDICAID, SELFPAY | PROVIDERS: PCP Registered Nurse; Visit Provider Registered Nurse | DX: E11.9 Type 2 diabetes mellitus without complications (principal) | CPT/HCPCS: 81000; 87077; 87086; 87184 ==

== ENCOUNTER → 2022-11-01 11:42 | Outpatient (BNVA) | payer MEDICAID, SELFPAY | PROVIDERS: PCP Registered Nurse; Visit Provider Registered Nurse | DX: E11.9 Type 2 diabetes mellitus without complications (principal); N39.0 Urinary tract infection, site not specified | CPT/HCPCS: 81000; 87077; 87086; 87184 ==

== ENCOUNTER → 2022-11-19 11:07 | Outpatient (BNVA) | payer MEDICAID, SELFPAY | PROVIDERS: PCP Registered Nurse; Visit Provider Registered Nurse | DX: E11.9 Type 2 diabetes mellitus without complications (principal) | CPT/HCPCS: 80053; 80061; 82043; 83036; 85025 ==

== ENCOUNTER → 2023-05-12 11:27 | Outpatient (BNVA) | payer MEDICAID, SELFPAY | PROVIDERS: PCP Registered Nurse; Visit Provider Registered Nurse | DX: E11.9 Type 2 diabetes mellitus without complications (principal); I10 Essential (primary) hypertension | CPT/HCPCS: 80053; 80061; 83036; 85025 ==

== ENCOUNTER → 2023-11-14 11:25 | Outpatient (BNVA) | payer MEDICAID, SELFPAY | PROVIDERS: PCP Registered Nurse; Visit Provider Registered Nurse | DX: E11.9 Type 2 diabetes mellitus without complications (principal) | CPT/HCPCS: 83036 ==

== ENCOUNTER → 2023-11-29 09:45 | Outpatient (BNVA) | payer MEDICAID, SELFPAY | PROVIDERS: PCP Registered Nurse; Visit Provider Podiatrist Foot & Ankle Surgery | DX: R60.9 Edema, unspecified; G62.9 Polyneuropathy, unspecified; E11.42 Type 2 diabetes mellitus with diabetic polyneuropathy | CPT/HCPCS: 99203 ==

== ENCOUNTER → 2024-05-09 08:08 | Outpatient (BNVA) | payer MEDICAID, SELFPAY | PROVIDERS: PCP Registered Nurse; Visit Provider Registered Nurse | DX: N39.0 Urinary tract infection, site not specified (principal) | CPT/HCPCS: 81000; 87086 ==

== ENCOUNTER → 2024-05-21 09:14 | Outpatient (BNVA) | payer MEDICAID, SELFPAY | PROVIDERS: PCP Registered Nurse; Visit Provider Registered Nurse | DX: N39.0 Urinary tract infection, site not specified (principal) | CPT/HCPCS: 81000; 87086 ==

== ENCOUNTER → 2024-05-29 10:56 | Outpatient (BNVA) | payer MEDICAID, SELFPAY | PROVIDERS: PCP Registered Nurse; Visit Provider Podiatrist Foot & Ankle Surgery | DX: G62.9 Polyneuropathy, unspecified (principal); E11.42 Type 2 diabetes mellitus with diabetic polyneuropathy | CPT/HCPCS: 99213 ==

== ENCOUNTER → 2024-05-30 10:09 | Outpatient (BNVA) | payer MEDICAID, SELFPAY | PROVIDERS: PCP Registered Nurse; Visit Provider Registered Nurse | DX: N39.0 Urinary tract infection, site not specified (principal) | CPT/HCPCS: 87086 ==

== ENCOUNTER → 2024-06-07 09:14 | Outpatient (BNVA) | payer MEDICAID, SELFPAY | PROVIDERS: PCP Registered Nurse; Visit Provider Registered Nurse | DX: E11.9 Type 2 diabetes mellitus without complications (principal) | CPT/HCPCS: 80053; 80061; 83036; 85025 ==

== ENCOUNTER → 2024-07-10 14:22 | Outpatient (BNVA) | payer MEDICAID, SELFPAY | PROVIDERS: PCP Registered Nurse; Visit Provider Orthopaedic Surgery | DX: M54.9 Dorsalgia, unspecified (principal); M79.604 Pain in right leg; M54.50 Low back pain, unspecified | CPT/HCPCS: 72110; 99213 ==

== ENCOUNTER → 2024-07-24 08:37 | Outpatient (BNVA) | payer MEDICAID, SELFPAY | PROVIDERS: PCP Registered Nurse; Visit Provider Orthopaedic Surgery | DX: Z98.1 Arthrodesis status (principal) | CPT/HCPCS: 99213 ==

== ENCOUNTER → 2024-09-24 08:54 | Outpatient (BNVA) | payer MEDICAID, SELFPAY | PROVIDERS: PCP Registered Nurse; Visit Provider Registered Nurse | DX: E11.9 Type 2 diabetes mellitus without complications (principal); R06.02 Shortness of breath; N39.0 Urinary tract infection, site not specified | CPT/HCPCS: 80053; 81000; 82607; 83036; 83880; 85025; 87077; 87086; 87184 ==

== ENCOUNTER 2024-10-19 06:18 | Outpatient (CLI) | payer MEDICAID, SELFPAY ==
--- NOTE | 2024-10-19 06:30 | USCV_ITS ---
Benjamín Pritchard Age: 59 Gender: F : 1965 Exam Date: 10/19/2024 06:29 Ordering Phys: Jovany Morelos MULTIPLE SCLEROSIS NURSE MULTIPLE SCLEROSIS NURSE Technologist: TERRANCE [place]am Location[place] [facility] [place]: edema BP: 118 / 70 HR: 79 Rhythm: Sinus Technical Quality: Adequate MEASUREMENTS (Male / Female) Normal Values 2D ECHO LV Diastolic Diameter PLAX 4.0 cm 4.2 - 5.9 / 3.9 - 5.3 cm IVS Diastolic Thickness 1.0 cm 0.6 - 1.0 / 0.6 - 0.9 cm IVS Systolic Thickness 1.2 cm LVPW Diastolic Thickness 0.9 cm 0.6 - 1.0 / 0.6 - 0.9 cm LVPW Systolic Thickness 1.5 cm LVOT Diameter 2.0 cm LV Ejection Fraction 2D Teich 63.8 % LV Ejection Fraction MOD 4C 60.2 % LV Ejection Fraction MOD 2C 64.3 % LV Ejection Fraction 2C AL 64.0 % LA Diameter 3.0 cm RA Systolic Volume 4C AL 27.4 ml RA Systolic Volume 4C MOD 27.4 ml LA Sys Volume AL 38.8 cm cubed LA Sys Volume Index AL 17.3 cm cubed/m squared Aorta at Sinotubular Diameter 2.0 cm IVC Diameter 1.4 cm M-MODE LA Ao Ratio MM 1.8 AV Cusp Separation MM 1.3 cm DOPPLER AV Peak Velocity 129.0 cm/s LVOT Peak Velocity 80.0 cm/s AV Area Cont Eq vti 1.7 cm squared AV Area Cont Eq pk 1.9 cm squared MV Peak Velocity 97.0 cm/s MV Area PHT 5.6 cm squared Mitral E to A Ratio 1.1 TV Peak Velocity 301.0 cm/s TR Peak Velocity 326.0 cm/s TR Peak Gradient 42.5 mmHg TR Mean Velocity 258.0 cm/s TR Mean Gradient 28.2 mmHg TR Velocity Time Integral 97.3 cm PV Peak Velocity 88.0 cm/s RV Ejection Time 0.3 s FINDINGS Left Ventricle Normal left ventricular size, systolic function and wall thickness, with no regional wall motion abnormalities. Left ventricular ejection fraction is estimated at 60%. Normal diastolic function. Right Ventricle Normal right ventricular size and systolic function. RVSP could not be calculated due to incomplete tricuspid regurgitation velocity profile. Right Atrium Normal right atrial size. Left Atrium Normal left atrial size. Mitral Valve Trace mitral valve regurgitation. Aortic Valve No aortic valve stenosis. No aortic valve regurgitation. Tricuspid Valve No tricuspid valve regurgitation. Pulmonic Valve No pulmonary valve stenosis. No pulmonary valve regurgitation. Pericardium No pericardial effusion. Aorta Normal size aortic root and proximal ascending aorta. IVC Normal inferior vena cava. CONCLUSIONS 1. Normal biventricular cavity size and systolic function, EF 60%. 2. No significant valvular abnormaltities. Benjamín Soriano MD, FACC (Electronically Signed) Final Date: 21 October 2024 18:54 S
== END 2024-10-19 06:19 | disposition home or self-care (01) ==
LOC: RAD 06:19
PROVIDERS: PCP Registered Nurse; Visit Provider Registered Nurse
DX: R60.9 Edema, unspecified (principal); R00.0 Tachycardia, unspecified; R06.02 Shortness of breath; R93.1 Abnormal findings on diagnostic imaging of heart and coronary circulation
CPT/HCPCS: 93306

== ENCOUNTER → 2024-10-30 14:36 | Outpatient (BNVA) | payer MEDICAID, SELFPAY | PROVIDERS: PCP Registered Nurse; Visit Provider Registered Nurse | DX: N39.0 Urinary tract infection, site not specified (principal) | CPT/HCPCS: 81000 ==

== ENCOUNTER → 2024-11-28 10:27 | Outpatient (BNVA) | payer MEDICAID, SELFPAY | PROVIDERS: PCP Registered Nurse; Visit Provider Podiatrist Foot & Ankle Surgery | DX: E11.8 Type 2 diabetes mellitus with unspecified complications (principal); G62.9 Polyneuropathy, unspecified; E11.42 Type 2 diabetes mellitus with diabetic polyneuropathy | CPT/HCPCS: 99213 ==

== ENCOUNTER → 2024-12-05 08:16 | Outpatient (BNVA) | payer MEDICAID, SELFPAY | PROVIDERS: PCP Registered Nurse; Referring Provider Registered Nurse; Visit Provider Specialist | DX: R41.3 Other amnesia (principal); R03.0 Elevated blood-pressure reading, without diagnosis of hypertension; F03.90 Unspecified dementia, unspecified severity, without behavioral disturbance, psychotic disturbance, mood disturbance, and anxiety | CPT/HCPCS: 36415; 82233; 82234; 82542; 83036; 83520; 84443; 96116; 99205 ==

== ENCOUNTER 2024-12-19 07:18 | Outpatient (CLI) | payer MEDICAID, SELFPAY ==
--- NOTE | 2024-12-19 07:15 | MR_ITS ---
WS: [id number] MRI HEAD WITHOUT CONTRAST TECHNIQUE: Sagittal T1, T2 axial, T2 axial FLAIR, axial and coronal T1 images, axial susceptibility weighted imaging, axial diffusion weighted images, and coronal T2 images were obtained. CLINICAL INFORMATION: R41.3 - Other amnesia COMPARISON: None. FINDINGS: No evidence of restricted diffusion to suggest acute ischemia. Ventricular system and basal cisterns are patent. Minimal small vessel changes. Mild parenchymal volume loss. Normal posterior fossa. Normal vascular flow voids at the skull base. No extra-axial fluid collections. Paranasal sinuses and mastoid air cells are well aerated. No hemosiderin. Normal optic chiasm and pituitary infundibulum. Temporal lobes and hippocampal formations are normal in. No significant atrophy. Normal mesial temporal lobes. Postoperative changes in the upper cervical spine. MR/MR head wo con* [id number] IMPRESSION: 1. No evidence of restricted diffusion to suggest acute ischemia. 2. Minimal small vessel changes. Mild parenchymal volume loss. 3. No hemosiderin on susceptibility-weighted images. 4. Temporal lobes and hippocampal formations are normal appearance. 5. No other acute findings.
== END 2024-12-19 07:19 | disposition home or self-care (01) ==
PROVIDERS: PCP Registered Nurse; Visit Provider Specialist
DX: R41.3 Other amnesia (principal); J34.89 Other specified disorders of nose and nasal sinuses
CPT/HCPCS: 70551

== ENCOUNTER → 2025-01-10 14:46 | Outpatient (BNVA) | payer MEDICAID, SELFPAY | PROVIDERS: PCP Registered Nurse; Visit Provider Registered Nurse | DX: N39.0 Urinary tract infection, site not specified (principal) | CPT/HCPCS: 81000; 87086 ==

== ENCOUNTER → 2025-01-22 09:52 | Outpatient (BNVA) | payer MEDICAID, SELFPAY | PROVIDERS: PCP Registered Nurse; Visit Provider Registered Nurse | DX: Z00.00 Encounter for general adult medical examination without abnormal findings (principal); N39.0 Urinary tract infection, site not specified | CPT/HCPCS: 81000 ==